=== PATIENT | female | born 1935 | race Caucasian/White ===

== ENCOUNTER 2016-08-26 14:13 | Emergency (ER) | payer OTHER ==
--- NOTE | 2016-08-26 17:45 | ED NURSING NOTES ---
Clinical Report - Nurses [facility] [address] [place] [address] 08/26/2016 14:14 [id number] Triage time 14:24 Aug 26 2016. Acuity: LEVEL 2. Chief Complaint: CHEST PAIN and (past week). RAHUL COMA SCORE: [place] Coma Scale: 15- eyes open spontaneously (4); best verbal response- oriented x 4 (5); best motor response- obeys commands (6). --14:32 James Enciso R.N. 14:23 08/26/16. BP: 96/74. HR: 89. RR: 18. O2 saturation: 95%. Temp: 98.4 F. Pain level now 5/10. --14:32 James Enciso R.N. Weight: 88.9 kg stated. Height/Length: 64 inches Per Patient. BMI: 33.7. --14:32 James Enciso R.N. Medications ClonazePAM Oral. --14:26 James Enicso R.N. Dilt-XR Oral. --14:27 James Enciso R.N. Furosemide Oral. --14:27 James Enciso R.N. Mirtazapine Oral. --14:27 James Enciso R.N. OxyCODONE HCl Oral. --14:27 James Enciso R.N. Potassium Chloride ER Oral. --14:27 James Enciso R.N. Tamsulosin HCl Oral. --14:27 James Enciso R.N. Vit D-Vit E-Safflower Oil External. --14:28 James Enciso R.N. Allergies morphine. --14:28 James Enciso R.N. Bupropion. --14:28 James Enciso R.N. Sulfa Antibiotics. --14:28 James Enciso R.N. History Arrived by private vehicle. Historian: patient. Accompanied by family. Onset. (one week). ( States is having coming and going chest pains. Patient states hasn't slept one wink in a week.). She has had difficulty breathing. No sweating episodes, nausea, vomiting, fever or cough. PAST MEDICAL HX: Hypertension. Immunizations: up-to-date. SOCIAL HX: Never smoker. No alcohol use or drug use. SELF HARM ASSESSMENT: A self harm assessment was performed. The patient answered "yes" to the question "Have you recently felt down, depressed, or hopeless?" and "Do you have thoughts of harming or killing yourself?". (Becasue of her lack of sleep). FALL RISK ASSESSMENT: Fall risk assessment completed. No fall risk identified. NUTRITIONAL RISK ASSESSMENT: The nutritional risk assessment revealed no deficiencies. FUNCTIONAL ASSESSMENT: Functional assessment: no impairments noted. LEARNING NEEDS ASSESSMENT: The learning needs assessment revealed no barriers. ABUSE ASSESSMENT: Abuse assessment: (no because she is alone at night and afraid) The patient was asked "Do you feel safe in your home?". SKIN INTEGRITY ASSESSMENT: Skin integrity risk assessment completed. No skin integrity risk identified. --14:32 James Enciso R.N. PROBLEMS: Chronic pain syndrome. Anxiety Reaction. Edema of lower extremity. Depression. --14:30 James Enciso R.N. Stage 3 kidney disease . --14:33 James Enciso R.N. The following entry was modified by James Enciso R.N., 14:33 <<STRICKEN ENTRY-- Hypertension. --14:25 James Enciso R.N. --END STRIKE>>. ADDITIONAL SURGERIES: Hip Surgery. Knee Surgery. --14:30 James Enciso R.N. Interventions ID band on patient. --14:32 James Enciso R.N. PHYSICAL ASSESSMENT Ambulatory to room. GENERAL / NEURO / PSYCH: Alert. Oriented X 4. Appears anxious. HEENT: Mucous membranes are pink. RESPIRATORY: Respirations not labored. Chest wall tenderness. Breath sounds within normal limits. CVS: Normal sinus rhythm noted. Heart sounds within normal limits. Pulses within normal limits. Capillary refill less than 2 seconds. GI / : Abdomen soft and nontender. ( Last BM yesterday). EXTREMITIES: Bilateral 3+ pitting edema of the lower extremities involving both feet, both ankles and both lower legs. SKIN: Skin is warm and dry. Normal skin turgor. Skin is non-tender. --14:33 James Enciso R.N. NURSING PROGRESS NOTES EKG time: (14:34). EKG was performed by a tech and shown to the ED physician. --14:35 Allison May 14:44 08/26/2016 Site #1 started via IV in the right antecubital space with an 20g angiocath, with aseptic technique and good blood return; one attempt. Blood drawn: rainbow set. Labeled in the presence of the patient and sent to the lab. Saline lock flushed with 10 mL saline. --14:44 James Enciso R.N. 15:03 08/26/2016 Ativan (LORazepam) IVP 1 mg given over 2 minute(s) via site #1. Allergies verified, confirmed 5 rights and sedative warning given to the patient. IV patency established. IV site checked: no pain, redness, or swelling. IV flushed thoroughly pre- and post-medication administration. --15:03 James Enciso R.N. 17:49 08/26/2016 Ativan (LORazepam) IVP 1 mg given over 2 minute(s) via site #1. Allergies verified, confirmed 5 rights and sedative warning given to the patient. IV patency established. IV site checked: no pain, redness, or swelling. IV flushed thoroughly pre- and post-medication administration. --17:49 James Enciso R.N. 17:30 08/26/16. BP: 114/59. HR: 69. RR: 19. O2 saturation: 95%. Temp: 98.6 F. Pain level now: 0/10. 16:30 08/26/16. BP: 114/52. HR: 85. RR: 18. O2 saturation: 94%. 15:30 08/26/16. BP: 127/63. HR: 69. RR: 21. O2 saturation: 96%. 14:45 08/26/16. BP: 103/55. HR: 85. RR: 15. O2 saturation: 94%. --18:05 James Enciso R.N. DISPOSITION / DISCHARGE Condition at departure: improved. No learning barriers present. Discharge instructions provided and reviewed with the patient. Reviewed warnings. Reviewed medication(s). Treatments reviewed. Reviewed referrals. Patient verbalized understanding. Written instructions provided in Georgian. The patient was discharged home and accompanied by wind operations manager. She left the Emergency Department ambulatory and via private vehicle. Air Conditioning Service Technician driving. --18:05 James Enciso R.N. 17:30 08/26/16. BP: 114/59. HR: 69. RR: 19. O2 saturation: 95%. Temp: 98.6 F. Pain level now: 0/10. --18:05 James Enciso R.N. 17:56 08/26/2016 Site #1 removed upon discharge. Catheter intact. Pressure dressing applied. --18:11 James Enciso R.N. Departure time: 18:12 Aug 26 2016. --18:12 James Enciso R.N. Locked/Released at 08/26/2016 19:33 by James Enciso R.N.
--- NOTE | 2016-08-26 17:45 | ED CLINICAL REPORT ---
Clinical Report - Physicians/Mid Levels [facility] [address] [place] [address] 08/26/2016 14:14 Patient: TIANA WESTON Time Seen: 14:18. Arrived- By private vehicle. Historian- patient. HISTORY OF PRESENT ILLNESS Chief Complaint: Insomnia, intermittent CP. It is described as sharp and well localized and it is described as located in the right chest and left chest area. No radiation. At its maximum, severity described as moderate. When seen in the E.D., it was gone. Modifying factors. Not worsened by anything. Not relieved by anything. This started Pt has been having intermittent insomnia since last November, she states. She has had intermittent CP for about a week. Pt is anxious about her sleep, and repeatedly states, "I just can't understand why I can't sleep." Pt believes this is due to someone giving her the "wrong combination of meds" last November; however, pt has not been on the meds for months. She has been weaning from her chronic opioids and benzodiazepines for the past few months, however. and is now gone. Onset during emotional upset. No nausea, vomiting, difficulty breathing or diaphoresis. Similar symptoms previously: Recent medical care: The patient was seen recently at another facility in a clinic. ( Pt has a sleep study coming up in September.). REVIEW OF SYSTEMS No fever, chills, cough, pedal edema or calf pain. No fainting episodes, headache, sore throat, blurred vision or abdominal pain. No black stools, difficulty with urination, skin rash, enlarged lymph nodes or joint pain. No bloody stools. All systems otherwise negative, except as recorded above. PAST HISTORY Problems: Stage 3 kidney disease . Chronic pain syndrome. Anxiety Reaction. Edema of lower extremity. Depression. Hypertension. Additional Surgeries: Hip Surgery. Knee Surgery. Medications: Vit D-Vit E-Safflower Oil External. Tamsulosin HCl Oral. Potassium Chloride ER Oral. OxyCODONE HCl Oral. Mirtazapine Oral. Furosemide Oral. Dilt-XR Oral. ClonazePAM Oral. Allergies: Bupropion. morphine. Sulfa Antibiotics. SOCIAL HISTORY Never smoker. No alcohol use or drug use. ADDITIONAL NOTES The nursing notes have been reviewed. PHYSICAL EXAM Vital Signs: 08/26/2016 14:23 BP: 96/74. HR: 89. RR: 18. O2 saturation: 95%. Temp: 98.4 F. Have been reviewed. Appearance: Alert. Oriented X3. Anxious. Eyes: Pupils equal, round and reactive to light. Eyes normal inspection. ENT: Nose normal. Neck: Normal inspection. CVS: Normal heart rate and rhythm. Heart sounds normal. Pulses normal. Respiratory: No respiratory distress. Breath sounds normal. Chest nontender. Abdomen: Soft and nontender. Back: Normal external inspection. No CVA tenderness. Skin: Skin warm and dry. Normal skin color. No rash. Normal skin turgor. Extremities: Extremities exhibit normal ROM. No lower extremity edema. Neuro: Oriented X 3. No motor deficit. No sensory deficit. LABS, X-RAYS, AND EKG EKG: EKG time: (1434). Normal sinus rhythm. Rate: 85. Left atrial enlargement. Normal LUKE. Normal QRS complex. Normal axis. Normal ST and T waves, QT and QTc. Prior EKG unavailable. The study has been interpreted contemporaneously by me. The study has been independently viewed by me. The EKG appears to be a good tracing. I agree with and confirm the computer reading of the EKG. Rhythm Strip #1: Time: (1431). Rate= 82. Normal sinus rhythm. Regular rhythm. Narrow QRS complexes. No ectopy. Conduction normal. Normal ST segments and T waves. The study was interpreted by me. Laboratory Tests: CBC w Diff: (EBEN: 08/26/2016 14:40) ( MsgRcvd 08/26/2016 14:54) Final results Test Result Flag Units (Reference) WHITE BLOOD COUNT 5.8 K/uL (4.5-11.5) RED BLOOD COUNT 4.63 M/uL (4.00-5.20) HEMOGLOBIN 13.7 gm/dL (12.0-16.0) HEMATOCRIT 41.8 % (36.0-46.0) MEAN CELL VOLUME 90 fL (80-100) MEAN CORPUSCULAR HGB 30 pg (26-34) MEAN CORPUSCULAR HGB CONC 33 g/dL (31-37) RED CELL DISTRIBUTION WIDTH 13.1 % (11.6-14.8) PLATELET COUNT 183 K/uL (150-400) NEUTROPHIL % 50.6 % (50-75) LYMPH % 38.2 % (25-40) MONO % 9.4 % (3-14) EOSINOPHIL % 1.1 % (0-4) BASOPHIL % 0.7 % (0-2) CHEM 13 PANEL: (EBEN: 08/26/2016 14:40) ( MsgRcvd 08/26/2016 15:08) Final results Test Result Flag Units (Reference) GLUCOSE 121 H mg/dL (70-110) BUN 24 H mg/dL (7-18) CREATININE 1.4 H mg/dL (0.6-1.3) Estimated GFR 38.65 mL/min Estimated GFR- 46.85 mL/min Note: Persistent reduction over 3 months in eGFR<60 mL/min/1.73 m2 defines CKD. Patients with eGFR values>=60 mL/min/1.73 m2 may also have CKD if evidence ofpersistent proteinuria. Additional information may be foundat www.kidney.org. SODIUM 144 mmol/L (136-145) POTASSIUM 4.3 mmol/L (3.5-5.1) CHLORIDE 104 mmol/L (98-107) CARBON DIOXIDE 31 mmol/L (21-32) CALCIUM 9.3 mg/dL (8.5-10.1) TOTAL PROTEIN 7.2 g/dL (6.4-8.2) ALBUMIN 3.4 g/dL (3.3-5.0) BILIRUBIN, TOTAL 0.2 mg/dL (0.0-1.0) ALKALINE PHOSPHATASE 111 U/L (46-116) AST (SGOT) 13 L U/L (15-37) ALT (SGPT) 22 U/L (12-78) MAGNESIUM 2.2 mg/dL (1.8-2.4) CPK 28 U/L (24-260) TROPONIN I <0.05 L ng/mL (0.00-1.5) TROPONIN REFERENCE RANGE:<0.1 NEGATIVE0.1-1.5 INDETERMINANT>1.5 POSITIVE . Pulse Oximetry: 08/26/2016 14:23 O2 saturation: 95%. (FIO2 - room air). Interpretation: normal. PROGRESS AND PROCEDURES Course of Care: Pt was very anxious in the ED, and less concerned about the chest pain than about the fact that she can't sleep. Pt expressed that she does not like to live alone. However, she was very resistant to the suggestion that perhaps she could consider moving to the independent section of an assisted living facility. She was also unreceptive to the idea that the weaning from her chronic sedating meds could be a significant contributor to her sleeplessness and anxiety. Pt's work-up was negative. She was given 2 doses of Ativan IV in the ED. I have advised her to f/u with her PCP to discuss further treatment of her insomnia. I will give her a trial of Seroquel, but have stressed the importance of follow-up. I do not feel at this point, that the pt is having a cardiac event. However, I have also advised her that when she sees her PCP, she should discuss this problem, and the possibility of scheduling a stress test. Patient counseled in person regarding the patient's stable condition, test results, diagnosis and need for follow-up. Concerns were addressed. Old medical records reviewed. Disposition: Discharged. Condition: stable. 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 Anxiety reaction (with generalized anxiety disorder). INSTRUCTIONS (Your labs look fine. It is most likely the weaning from your clonazepam and oxycodone that is causing the trouble you are having with sleep.). Warnings: GENERAL WARNINGS: Return or contact your physician immediately if your condition worsens or changes unexpectedly, if not improving as expected, or if other problems arise. Your Current Medications: CONTINUE TAKING THE FOLLOWING MEDICATIONS: ClonazePAM Oral. Dilt-XR Oral. Furosemide Oral. Mirtazapine Oral. OxyCODONE HCl Oral. Potassium Chloride ER Oral. Tamsulosin HCl Oral. Vit D-Vit E-Safflower Oil External. Prescription Medications: Seroquel 25 mg: take 1 tablet orally every 12 hours. Dispense twenty (20). No refill. Substitution is permissible. Follow-up: Follow up with your doctor. Call for the next available appointment. Reason for referral: Follow up ER visit for insomnia and anxiety. Understanding of the discharge instructions verbalized by patient. (Electronically signed by Brea Mcpherson MD 09/04/2016 17:01)
--- NOTE | 2016-08-26 17:46 | ED ORDER SUMMARY ---
..... 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 verbal order read back to Carmen FALK) (Ack 14:21 Adriana) (14:38 LWhalen R.N.) CBC w Diff Urgent (14:08/26/2016 Carlitos R.N. verbal order read back to Carmen FALK) (Ack 14:21 Adriana) (Cancelled: Other14:27 JRomanelli R.N.) CMP Urgent (14:19 08/26/2016 Carlitos R.N. verbal order read back to Carmen FALK) (Ack 14:21 Adriana) (14:27 JRomanelli R.N.) (Cancelled: Other14:27 JRomanelli R.N.) UA-Culture if indicated Urgent (14:19 08/26/2016 JRflori R.N. verbal order read back to Carmen FALK) (Ack 14:21 Adriana) EKG - ER Stat (14:19 08/26/2016 Carlitos R.N. verbal order read back to Carmen FALK) (Ack 14:21 Adriana) (14:35 RKarhuber) (14:38 LWhalen R.N.) Oxygen (2 L/min) (NC) (14:19 08/26/2016 JRomanelli R.N. verbal order read back to Carmen FALK) (Ack 14:21 Adriana) (14:38 LWhalen R.N.) Cardiac Panel Stat (14:08/26/2016 Gonzaloelli R.N. verbal order read back to Carmen FALK) (Ack 14:21 Adriana) (14:38 LWhalen R.N.) MEDICATION ORDERS: IV FLUIDS: IV Saline Lock (14:19 08/26/2016 Carlitos R.N. verbal order read back to Carmen FALK) (14:44 LWhalcarolina R.N.) Ativan IV 1 mg (HIGH ALERT MEDICATION, NOW) (14:55 08/26/2016 Carmen FALK) (15:03 LWclaudia R.N.) Ativan IV 1 mg (HIGH ALERT MEDICATION, NOW) (17:33 08/26/2016 Carmen FALK) (17:49 LWhalcarolnia R.N.) ORDER SHEET NOTES: [Electronically signed by James Enciso R.N. (19:33 08/26/2016)] [Electronically signed by Brea Mcpherson MD (17:01 09/04/2016)] [Electronically locked/signed by James Enciso R.N. (19:33 08/26/2016)]
--- NOTE | 2016-08-26 17:46 | ED ORDER SUMMARY ---
..... 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 verbal order read back to Carmen FALK) (Ack 14:21 Adriana) (14:38 LWhalen R.N.) CBC w Diff Urgent (14:08/26/2016 Carlitos R.N. verbal order read back to Carmen FALK) (Ack 14:21 Adriana) (Cancelled: Other14:27 JRomanelli R.N.) CMP Urgent (14:19 08/26/2016 Carlitos R.N. verbal order read back to Carmen FALK) (Ack 14:21 Adriana) (14:27 JRomanelli R.N.) (Cancelled: Other14:27 JRomanelli R.N.) UA-Culture if indicated Urgent (14:19 08/26/2016 JRflori R.N. verbal order read back to Carmen FALK) (Ack 14:21 Adriana) EKG - ER Stat (14:19 08/26/2016 Carlitos R.N. verbal order read back to Carmen FALK) (Ack 14:21 Adriana) (14:35 RKarhuber) (14:38 LWhalen R.N.) Oxygen (2 L/min) (NC) (14:19 08/26/2016 JRomanelli R.N. verbal order read back to Carmen FALK) (Ack 14:21 Adriana) (14:38 LWhalen R.N.) Cardiac Panel Stat (14:08/26/2016 Gonzaloelli R.N. verbal order read back to Carmen FALK) (Ack 14:21 Adriana) (14:38 LWhalen R.N.) MEDICATION ORDERS: IV FLUIDS: IV Saline Lock (14:19 08/26/2016 Carlitos R.N. verbal order read back to Carmen FALK) (14:44 LWhalcarolina R.N.) Ativan IV 1 mg (HIGH ALERT MEDICATION, NOW) (14:55 08/26/2016 Carmen FALK) (15:03 LWclaudia R.N.) Ativan IV 1 mg (HIGH ALERT MEDICATION, NOW) (17:33 08/26/2016 Carmen FALK) (17:49 LWhalcarolina R.N.) ORDER SHEET NOTES: [Electronically signed by James Enciso R.N. (19:33 08/26/2016)] [Electronically signed by Brea Mcpherson MD (17:01 09/04/2016)] [Electronically locked/signed by James Enciso R.N. (19:33 08/26/2016)]
--- NOTE | 2016-09-04 17:01 | ED MED RECONCILIATION SUMMARY ---
Patient: TIANA WESTON Medication Reconciliation Report [facility] VisitID: [id number] [address] [place] [address] 80y, F Registration Date/Time: 08/26/2016 Weight: 88.9 kg Height/Length: 64 in. BMI: 33.7 ALLERGIES: Bupropion, morphine, Sulfa Antibiotics The patient's Home Medications are listed below: CONTINUE TAKING THE FOLLOWING MEDICATIONS: ClonazePAM Oral Dilt-XR Oral Furosemide Oral Mirtazapine Oral OxyCODONE HCl Oral Potassium Chloride ER Oral Tamsulosin HCl Oral Vit D-Vit E-Safflower Oil External The source(s) of the original Home Medication information: Not obtained. The following Medications were given to the patient in the Emergency Department: Ativan [IVP] IVP 1 mg, administered: 08/26/2016 3:03:00 PM Ativan [IVP] IVP 1 mg, administered: 08/26/2016 5:49:00 PM The following Medications were prescribed to the patient: Seroquel 25 mg: take 1 tablet orally every 12 hours. Dispense twenty (20). No refill. Substitution is permissible. -- Brea Mcpherson MD
--- NOTE | 2016-09-04 17:01 | ED MAR SUMMARY ---
..... Medication Administration Record [facility] [address] [place] [address] Patient: TIANA WESTON Visit ID: [id number] 80y, F Weight: 88.9 kg Height/Length: 64 in BMI: 33.7 ALLERGIES: Sulfa Antibiotics, Bupropion, morphine Given 15:03 08/26/2016 James Enciso R.N. Medication Administered: ATIVAN [IVP] (LORAZEPAM), Dose: 1 mg IVP over 2 minute(s), Site: #1 right AC. Medication Ordered: Ativan IV 1 mg (HIGH ALERT MEDICATION, NOW). Given 17:49 08/26/2016 James Enciso R.N. Medication Administered: ATIVAN [IVP] (LORAZEPAM), Dose: 1 mg IVP over 2 minute(s), Site: #1 right AC. Medication Ordered: Ativan IV 1 mg (HIGH ALERT MEDICATION, NOW).
--- NOTE | 2016-09-04 17:01 | ED MED RECONCILIATION SUMMARY ---
Patient: TIANA WESTON Medication Reconciliation Report [facility] VisitID: [id number] [address] [place] [address] 80y, F Registration Date/Time: 08/26/2016 Weight: 88.9 kg Height/Length: 64 in. BMI: 33.7 ALLERGIES: Bupropion, morphine, Sulfa Antibiotics The patient's Home Medications are listed below: CONTINUE TAKING THE FOLLOWING MEDICATIONS: ClonazePAM Oral Dilt-XR Oral Furosemide Oral Mirtazapine Oral OxyCODONE HCl Oral Potassium Chloride ER Oral Tamsulosin HCl Oral Vit D-Vit E-Safflower Oil External The source(s) of the original Home Medication information: Not obtained. The following Medications were given to the patient in the Emergency Department: Ativan [IVP] IVP 1 mg, administered: 08/26/2016 3:03:00 PM Ativan [IVP] IVP 1 mg, administered: 08/26/2016 5:49:00 PM The following Medications were prescribed to the patient: Seroquel 25 mg: take 1 tablet orally every 12 hours. Dispense twenty (20). No refill. Substitution is permissible. -- Brea Mcpherson MD
--- NOTE | 2016-09-04 17:01 | ED MAR SUMMARY ---
..... Medication Administration Record [facility] [address] [place] [address] Patient: TIANA WESTON Visit ID: [id number] 80y, F Weight: 88.9 kg Height/Length: 64 in BMI: 33.7 ALLERGIES: Sulfa Antibiotics, Bupropion, morphine Given 15:03 08/26/2016 James Enciso R.N. Medication Administered: ATIVAN [IVP] (LORAZEPAM), Dose: 1 mg IVP over 2 minute(s), Site: #1 right AC. Medication Ordered: Ativan IV 1 mg (HIGH ALERT MEDICATION, NOW). Given 17:49 08/26/2016 James Enciso R.N. Medication Administered: ATIVAN [IVP] (LORAZEPAM), Dose: 1 mg IVP over 2 minute(s), Site: #1 right AC. Medication Ordered: Ativan IV 1 mg (HIGH ALERT MEDICATION, NOW).
--- NOTE | 2016-09-04 17:01 | ED DISCHARGE INSTRUCTIONS ---
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 Anxiety reaction (with generalized anxiety disorder). INSTRUCTIONS (Your labs look fine. It is most likely the weaning from your clonazepam and oxycodone that is causing the trouble you are having with sleep.). Warnings: GENERAL WARNINGS: Return or contact your physician immediately if your condition worsens or changes unexpectedly, if not improving as expected, or if other problems arise. Your Current Medications: CONTINUE TAKING THE FOLLOWING MEDICATIONS: ClonazePAM Oral. Dilt-XR Oral. Furosemide Oral. Mirtazapine Oral. OxyCODONE HCl Oral. Potassium Chloride ER Oral. Tamsulosin HCl Oral. Vit D-Vit E-Safflower Oil External. Prescription Medications: Seroquel 25 mg: take 1 tablet orally every 12 hours. Dispense twenty (20). No refill. Substitution is permissible. Follow-up: Follow up with your doctor. Call for the next available appointment. Reason for referral: Follow up ER visit for insomnia and anxiety. Understanding of the discharge instructions verbalized by patient. ADDITIONAL INFORMATION Insomnia Insomnia refers to a difficulty going to sleep or staying asleep, or both. Insomnia has many causes, including anxiety, stress, depression, chronic pain, sleeping cycles out of balance due to working night shifts or excess napping during the day, and a condition called sleep apnea. Insomnia can be a side effect from stimulant medicines such as decongestants, asthma inhalers and pills, diet pills, and illegal drugs such as speed, crank, crack, and PCP. Home Care: Review your medicines with your doctor or pharmacist to find out if they can cause insomnia. Caffeine, smoking and alcohol also affect sleep. Limit your daily use and do not use these before bedtime. Alcohol may make you sleepy at first, but as its effects wear off, you may awaken a few hours later and have trouble returning to sleep. Do not exercise, eat or drink large amounts of liquid within 2 hours of your bedtime. Improve your sleep habits. Have a fixed bed and wake-up time. Try to keep noise, light and heat in your bedroom at a comfortable level. Try using earplugs or eyeshades if needed. Avoid watching TV in bed. If you do not fall asleep within 30 minutes, try to relax by reading or listening to soft music. Limit daytime napping to one 30 minute period, early in the day. Get regular exercise. Find other ways to lessen your stress level. If a medicine was prescribed to help reset your sleep patterns, take it as directed. Sleeping pills are intended for short-term use, only. If taken for too long, the effect wears off while the risk of physical addiction and psychological dependence increases. Follow-Up with your doctor or as directed by our staff if you feel that your insomnia is not responding to the above measures. Get Prompt Medical Attention if any of the following occur: Extreme restlessness or irritability Confusion or hallucinations (seeing or hearing things that are not there) Anxiety, depression Several days without sleeping Stress Reaction Anxiety is the feeling we all get when we think something bad might happen. It is a normal response to stress and usually causes only a mild reaction. When anxiety becomes more severe, emotions may interfere with daily life. In some cases, you may not even be aware of what it is youre anxious about! During an anxiety reaction, you may feel like you are helpless, nervous, depressed or irritable. Your body may show signs of anxiety in many ways. You may experience dry mouth, shakiness, dizziness, weakness, trouble breathing, chest pressure, headache, nausea, diarrhea, tiredness, inability to sleep or sexual problems. Home Care: 1) Try to locate the sources of stress in your life. They may not be obvious! These may include: -- Daily hassles of life which pile up (traffic jams, missed appointments, car troubles, etc.) -- Major life changes, both good (new baby, job promotion) and bad (loss of job, loss of loved one) -- Overload: feeling that you have too many responsibilities and can't take care of all of them at once -- Feeling helpless, feeling that your problems are beyond what youre able to solve 2) Notice how your body reacts to stress. Learn to listen to your body signals. This will help you take action before the stress becomes severe. 3) When you can, do something about the source of your stress. (Avoid hassles, limit the amount of change that happens in your life at one time and take a break when you feel overloaded). 4) Unfortunately, many stressful situations cannot be avoided. It is necessary to learn HOW TO MANAGE STRESS better. There are many proven methods that will reduce your anxiety. These include simple things like exercise, good nutrition and adequate rest. Also, there are certain techniques that are helpful: relaxation and breathing exercises, visualization, biofeedback and meditation. For more information about this, consult your doctor or go to a local bookstore and review the many books and tapes available on this subject. Follow Up If you feel that your anxiety is not responding to self-help measures, contact your doctor or make an appointment with a counselor. Get Prompt Medical Attention if any of the following occur: -- Your symptoms get worse -- Chest pain or trouble breathing -- Severe headache not relieved by rest and mild pain reliever -- Rapid or irregular heartbeat, fainting You have been given the following additional information: Insomnia Anxiety Reaction (Electronically signed by Brea Mcpherson MD 09/04/2016 17:01)
== END 2016-08-26 18:10 | disposition home or self-care (01) ==
LOC: ED SRH 14:13
DX: F11.282 Opioid dependence with opioid-induced sleep disorder (principal); F41.1 Generalized anxiety disorder; R07.9 Chest pain, unspecified; I12.9 Hypertensive chronic kidney disease with stage 1 through stage 4 chronic kidney disease, or unspecified chronic kidney disease; N18.3 Chronic kidney disease, stage 3 (moderate); Z88.5 Allergy status to narcotic agent; Z88.2 Allergy status to sulfonamides; Z79.899 Other long term (current) drug therapy
CPT/HCPCS: 90004; 90100; 90616; 92610; 92720; 95059

== ENCOUNTER 2016-09-05 14:56 | Emergency (ER) | payer OTHER ==
--- NOTE | 2016-09-05 17:06 | ED ORDER SUMMARY ---
..... Patient: TIANA WESTON OrderSheet [facility] VisitID: [id number] [place] [address] 80y, F Registration Date/Time: 09/05/2016 ORDER SHEET Weight: 88.9 kg (stated) Allergies: Bupropion, morphine, Sulfa Antibiotics GENERAL ORDERS: CBC w Diff Urgent (15:18 09/05/2016 EKoroleva P.A.-C) (Ack 15:31 PWeiler ER Tech1) (15:55 PWeiler ER Tech1) UA-Culture if indicated Urgent (15:18 09/05/2016 EKoroleva P.A.-C) (Ack 15:31 PWeiler ER Tech1) (15:37 LNations ER Tech1) Urine Drug Screen Urgent (15:18 09/05/2016 EKoroleva P.A.-C) (Ack 15:31 PWeiler ER Tech1) (15:37 LNations ER Tech1) CMP Urgent (15:18 09/05/2016 EKoroleva P.A.-C) (Ack 15:31 PWeiler ER Tech1) (15:55 PWeiler ER Tech1) Call (Place call to): (Dr) (Dr. CHEN) (15:18 09/05/2016 EKorolejanis P.A.-C) (15:40 PWeiler ER Tech1) MEDICATION ORDERS: Haldol IM 2.5mg (HIGH ALERT MEDICATION, NOW) (16:20 09/05/2016 EKorolejanis P.A.-C) (Ack 16:31 JBoardley R.N.) (17:24 JBoardley R.N.) Ativan IM 1 mg (with RIDE) (16:20 09/05/2016 EKoroleva P.A.-C) (Ack 16:31 JBoardley R.N.) (17:24 JBoardley R.N.) IV FLUIDS: ORDER SHEET NOTES: [Electronically signed by Adolfo Miles R.N. (17:39 09/05/2016)] [Electronically signed by Kathy ShipmanAPreethi-Jeremiah (17:44 09/05/2016)] [Electronically locked/signed by Adolfo Miles R.N. (17:39 09/05/2016)]
--- NOTE | 2016-09-05 17:06 | ED ORDER SUMMARY ---
..... Patient: TIANA WESTON OrderSheet [facility] VisitID: [id number] [place] [address] 80y, F Registration Date/Time: 09/05/2016 ORDER SHEET Weight: 88.9 kg (stated) Allergies: Bupropion, morphine, Sulfa Antibiotics GENERAL ORDERS: CBC w Diff Urgent (15:18 09/05/2016 EKoroleva P.A.-C) (Ack 15:31 PWeiler ER Tech1) (15:55 PWeiler ER Tech1) UA-Culture if indicated Urgent (15:18 09/05/2016 EKoroleva P.A.-C) (Ack 15:31 PWeiler ER Tech1) (15:37 LNations ER Tech1) Urine Drug Screen Urgent (15:18 09/05/2016 EKoroleva P.A.-C) (Ack 15:31 PWeiler ER Tech1) (15:37 LNations ER Tech1) CMP Urgent (15:18 09/05/2016 EKoroleva P.A.-C) (Ack 15:31 PWeiler ER Tech1) (15:55 PWeiler ER Tech1) Call (Place call to): (Dr) (Dr. CHEN) (15:18 09/05/2016 EKorolejanis P.A.-C) (15:40 PWeiler ER Tech1) MEDICATION ORDERS: Haldol IM 2.5mg (HIGH ALERT MEDICATION, NOW) (16:20 09/05/2016 EKorolejanis P.A.-C) (Ack 16:31 JBoardley R.N.) (17:24 JBoardley R.N.) Ativan IM 1 mg (with RIDE) (16:20 09/05/2016 EKoroleva P.A.-C) (Ack 16:31 JBoardley R.N.) (17:24 JBoardley R.N.) IV FLUIDS: ORDER SHEET NOTES: [Electronically signed by Adolfo Miles R.N. (17:39 09/05/2016)] [Electronically signed by Kathy ShipmanAPreethi-Jeremiah (17:44 09/05/2016)] [Electronically locked/signed by Adolfo Miles R.N. (17:39 09/05/2016)]
--- NOTE | 2016-09-05 17:06 | ED CLINICAL REPORT ---
Clinical Report - Physicians/Mid Levels [facility] [address] [place] [address] 09/05/2016 14:57 [id number] Time Seen: 15:03 Sep 05 2016. Arrived- By ambulance. Historian- patient and EMS personnel. HISTORY OF PRESENT ILLNESS Chief Complaint: DIFF with sleep. No situational problems. (patient reports inability to sleep over the last 6-7 days. Has seen her primary care doctor for this, as well as her psychologist in the past. She reports SHE wants to do is sleep. She does not want to harm herself in that sense. Denies any homicidal ideation. Denies any use of drugs.). Has been eating. Has not been sleeping. No unusual behavior, paranoia, delusions, suicidal thoughts or hallucinations. REVIEW OF SYSTEMS No headache, dizziness, weakness, chest pain or abdominal pain. No vomiting, diarrhea, numbness, skin rash or enlarged lymph nodes. All systems otherwise negative, except as recorded above. SOCIAL HISTORY Has social support. Has place to stay. ADDITIONAL NOTES The nursing notes have been reviewed. PHYSICAL EXAM Vital Signs: 09/05/2016 15:05 BP: 133/67. HR: 83. RR: 18. O2 saturation: 98%. Temp: 98.1 F. Pain level now: 4/10. Appearance: Alert. No acute distress. Appearance is normal. Eyes: Pupils equal, round and reactive to light. Neck: Normal inspection. CVS: Normal heart rate and rhythm. Heart sounds normal. Respiratory: Breath sounds normal. Chest nontender. Abdomen: Soft. No abdominal tenderness. Skin: Normal skin color. Psych / Neuro: Mood and affect normal. Thought process and content normal. No apparent hallucinations. Denies suicidal thoughts. Insight and judgement normal. Cranial nerves normal (as tested). No cerebellar findings. No motor deficit. LABS, X-RAYS, AND EKG Laboratory Tests: UA-Culture if indicated: (EBEN: 09/05/2016 15:20) ( MsgRcvd 09/05/2016 16:06) Final results Test Result Flag Units (Reference) URINE COLOR STRAW URINE APPEARANCE CLEAR URINE GLUCOSE NEGATIVE (NEGATIVE) URINE BILIRUBIN NEGATIVE (NEGATIVE) URINE KETONE NEGATIVE (NEGATIVE) URINE SPECIFIC GRAVITY 1.010 (1.010-1.030) URINE PH 7.0 (5.0-8.0) URINE PROTEIN NEGATIVE (NEGATIVE) URINE UROBILINOGEN 0.2 EU/dL (0.2-1.0) URINE NITRITE NEGATIVE (NEGATIVE) URINE BLOOD NEGATIVE (NEGATIVE) URINE LEUK ESTERASE POSITIVE (NEGATIVE) URINE RBC NONE SEEN rbc/hpf (0-1) URINE WBC 0-1 wbc/hpf (0-1) URINE EPITHELIAL CELLS 0-1 EPI/hpf (0-5) URINE BACTERIA TRACE (<1+) (NONE SEEN) URINE COMMENT CULTURE INDICATED This is a corrected result 09/05/16 1605:URINE COMMENT previously reported as: CULT NOT INDICATEDURINE CULTURES ARE SET-UP BASED ON THE FOLLOWING CRITERIA:POSITIVE NITRITEPOSITIVE LEUKOCYTE ESTERASEGREATER THAN 10 WHITE BLOOD CELLSMODERATE (2+) OR GREATER BACTERIA CBC w Diff: (EBEN: 09/05/2016 15:41) ( MsgRcvd 09/05/2016 15:49) Final results Test Result Flag Units (Reference) WHITE BLOOD COUNT 7.1 K/uL (4.5-11.5) RED BLOOD COUNT 4.69 M/uL (4.00-5.20) HEMOGLOBIN 14.0 gm/dL (12.0-16.0) HEMATOCRIT 42.3 % (36.0-46.0) MEAN CELL VOLUME 90 fL (80-100) MEAN CORPUSCULAR HGB 30 pg (26-34) MEAN CORPUSCULAR HGB CONC 33 g/dL (31-37) RED CELL DISTRIBUTION WIDTH 13.4 % (11.6-14.8) PLATELET COUNT 193 K/uL (150-400) NEUTROPHIL % 61.9 % (50-75) LYMPH % 28.6 % (25-40) MONO % 8.5 % (3-14) EOSINOPHIL % 0.4 % (0-4) BASOPHIL % 0.6 % (0-2) Urine Drug Screen: (EBEN: 09/05/2016 15:20) ( MsgRcvd 09/05/2016 15:52) Final results Test Result Flag Units (Reference) AMPHETAMINE/METHAMPHETAMINE NEGATIVE (NEGATIVE) BARBITURATE NEGATIVE (NEGATIVE) BENZODIAZEPINE NEGATIVE (NEGATIVE) CANNABINOID NEGATIVE (NEGATIVE) COCAINE NEGATIVE (NEGATIVE) ECSTASY NEGATIVE (NEGATIVE) METHADONE NEGATIVE (NEGATIVE) OPIATE NEGATIVE (NEGATIVE) The urine drug screen is a qualitative screening test fordrug overdose and abuse. All screen results should beconsidered as presumptive.Drugs screened for are as follows:BenzodiazepinesCocaineAmphetamines/MetamphetaminesTHC (Tetrahydrocannabinol)OpiatesBarbituratesEcstasyMethadonePositive results are unconfirmed. For confirmation, notifythe lab for the specimen to be sent to the reference lab.All confirmations must be performed by a differentmethodology.The ingestion of natural herbal and plant productscontaining Ephedra/Ephedra metabolites can produce in urineone or more substances capable of cross reacting withamphetamine/methamphetamine immunoassays. These testsprovide a preliminary result only. A more specificalternative chemical method must be used to obtain aconfirmed analytical result. CMP: (EBEN: 09/05/2016 15:41) ( MsgRcvd 09/05/2016 16:02) Final results Test Result Flag Units (Reference) GLUCOSE 110 mg/dL (70-110) BUN 21 H mg/dL (7-18) CREATININE 1.1 mg/dL (0.6-1.3) Estimated GFR 51.06 mL/min Estimated GFR- >60 mL/min Note: Persistent reduction over 3 months in eGFR<60 mL/min/1.73 m2 defines CKD. Patients with eGFR values>=60 mL/min/1.73 m2 may also have CKD if evidence ofpersistent proteinuria. Additional information may be foundat www.kidney.org. SODIUM 143 mmol/L (136-145) POTASSIUM 4.1 mmol/L (3.5-5.1) CHLORIDE 108 H mmol/L (98-107) CARBON DIOXIDE 28 mmol/L (21-32) CALCIUM 9.4 mg/dL (8.5-10.1) TOTAL PROTEIN 7.8 g/dL (6.4-8.2) ALBUMIN 3.6 g/dL (3.3-5.0) BILIRUBIN, TOTAL 0.4 mg/dL (0.0-1.0) ALKALINE PHOSPHATASE 112 U/L (46-116) AST (SGOT) 15 U/L (15-37) ALT (SGPT) 22 U/L (12-78) . PROGRESS AND PROCEDURES Course of Care: CT head 06/15/16: NEG, reviewed records from [facility] unremarkable prior work up, prior visit for insomnia. I also discussed with patients pcp, Dr. Contreras, who reports she is having pt seen at sleep specialist, and pt had a few appointments/ cancelled/ rescheduled This has been ongoing for almost a year. At this time patient has a negative neuro exam, no organic cause of acute insomnia, and this has been ongoing for months. PT adamantly denies SI, reports she just wants to sleep, this is not a new issue, rather ongoing for almost 1 year. No neuro or organic. Picked up by family. Patient is stable. Symptoms better. Patient/family counseled. Disposition: Discharged. CLINICAL IMPRESSION Insomnia. INSTRUCTIONS Stay with responsible adult family member (or other responsible adult). Follow-up: Follow up with your doctor. Call for the next available appointment. (Electronically signed by Kathy Shipman P.A.-C 09/05/2016 17:44)
--- NOTE | 2016-09-05 17:06 | ED NURSING NOTES ---
Clinical Report - Nurses [facility] [address] [place] [address] 09/05/2016 14:57 Patient: TIANA WESTON TRIAGE Triage time 14:59. Acuity: LEVEL 4. Chief Complaint: INSOMNIA. 15:00 09/05/16. 15:00 09/05/16. Alert. No acute distress. ( Pt with insomnia causing SI. Pt has not slept for 7 days. Pt states she lives by herself and has a caregiver for 6 hrs a day.). SEPSIS SCREEN: Sepsis Screen. Negative (no infection suspected/documented). ROSEMARY COMA SCORE: Rosemary Coma Scale: 15- eyes open spontaneously (4); best verbal response- oriented x 4 (5); best motor response- obeys commands (6). --15:07 Adolfo Miles R.N. 15:05 09/05/16. BP: 133/67. HR: 83. RR: 18. O2 saturation: 98% on room air. Temp: 98.1 F (oral). Pain level now: 08/29. --15:07 Adolfo Miles R.N. Weight: 88.9 kg stated. Height/Length: 64 inches Per Patient. BMI: 33.7. --15:00 Adolfo Miles R.N. Medications ClonazePAM Oral (Tablet 1 mg) 1/2 tablet, 4x a day. Dilt-XR Oral (Capsule Extended Release 24 Hour 180 mg) 1 capsule, daily. Mirtazapine Oral 45 mg, at bedtime. OxyCODONE HCl Oral 15 mg, 6 times daily. Potassium Chloride ER Oral (Tablet Extended Release 20 meq) 1 tablet, daily. Tamsulosin HCl Oral (Capsule 0.4 mg) 1 capsule, at bedtime. --15:03 Lana Serrato R.N. Allopurinol Oral (Tablet 100 mg) 1 tablet. --16:02 Lana Serrato R.N. Vitamin D Oral, daily. --16:08 Lana Serrato R.N. Methadone HCl Oral (Tablet 5 mg) 1 tablet, daily. --16:09 Lana Serrato R.N. Fish Oil Oral (Capsule 1200 mg) 1 capsule, daily. --16:10 Lana Serrato R.N. TraZODone HCl Oral (Tablet 50 mg) 2 tablets. --16:13 Lana Serrato R.N. HydrOXYzine HCl Oral (Tablet 25 mg) 1-2 tabs, as needed. --16:21 Lana Serrato R.N. SEROquel Oral (Tablet 50 mg) 1-2 tabs, at bedtime. --16:22 Lana Serrato R.N. Melatonin Oral (Tablet 3 mg), q HS. --16:23 Lana Serrato R.N. The following entry was struck by Lana Serrato R.N., 16:21 (09/05/16) Reason - other. <<STRICKEN ENTRY-- Furosemide Oral. --15:03 Adolfo Miles R.N. --END STRIKE>> The following entry was struck by Lana Serrato R.N., 16:21 (09/05/16) Reason - other. <<STRICKEN ENTRY-- Vit D-Vit E-Safflower Oil External. --15:03 Adolfo Miles R.N. --END STRIKE>> The following entry was struck and corrected by Lana Serrato R.N., 16:13 (09/05/16) Reason for correction - other(correction). <<STRICKEN ENTRY-- Tamsulosin HCl Oral. --15:03 Adolfo Miles R.N. --END STRIKE>> The following entry was struck and corrected by Lana Serrato R.N., 16:12 (09/05/16) Reason for correction - other(correction). <<STRICKEN ENTRY-- Potassium Chloride ER Oral. --15:03 Adolfo Miles R.N. --END STRIKE>> The following entry was struck and corrected by Lana Serrato R.N., 16:11 (09/05/16) Reason for correction - other(correction). <<STRICKEN ENTRY-- OxyCODONE HCl Oral. --15:03 Adolfo Miles R.N. --END STRIKE>> The following entry was struck and corrected by Lana Serrato R.N., 16:10 (09/05/16) Reason for correction - other(correction). <<STRICKEN ENTRY-- Mirtazapine Oral. --15:03 Adolfo Miles R.N. --END STRIKE>> The following entry was struck and corrected by Lana Serrato R.N., 16:04 (09/05/16) Reason for correction - other(correction). <<JOSSY ENTRY-- Dilt-XR Oral. --15:03 Adolfo Miles R.N. --END STRIKE>> The following entry was struck and corrected by Lana Serrato R.N., 16:03 (09/05/16) Reason for correction - other(correction). <<JOSSY ENTRY-- ClonazePAM Oral. --15:03 Adolfo Miles R.N. --END STRIKE>>. Medication/allergy information source: the patient. --15:07 Adlofo Miles R.N. Allergies Bupropion. morphine. Sulfa Antibiotics. --15:03 Adolfo Mlies R.N. History Arrived by EMS. Historian: patient. Unaccompanied. Primary physician (NIKI CARLOS). 15:00 09/05/16. Onset. (7 days ago). Treatment ENGINEERING PROJECT MANAGER: None. PAST MEDICAL HX: Immunizations: up-to-date. SOCIAL HX: Never smoker. No alcohol use or drug use. No infectious disease exposure. ABUSE ASSESSMENT: No report of abuse. SELF HARM ASSESSMENT: A self harm assessment was performed. The patient answered "yes" to the question "Have you recently felt down, depressed, or hopeless?", "Have you noticed less interest or pleasure in doing things?" and "Do you have thoughts of harming or killing yourself?" and "no" to the question "Are you here because you tried to hurt yourself?", "Have you ever tried to hurt yourself before today?", "Have you recently had thoughts about harming or killing others?" and "Do you have any dangerous items in your possession?". The patient reports their behavior. A further in-depth assessment is planned. She has been placed under continuous supervision with bedside precautions. Clothes and valuables were removed and placed at the nurses station. FALL RISK ASSESSMENT: Fall risk assessment completed. No fall risk identified. NUTRITIONAL RISK ASSESSMENT: The nutritional risk assessment revealed no deficiencies. FUNCTIONAL ASSESSMENT: Functional assessment: no impairments noted. LEARNING NEEDS ASSESSMENT: The learning needs assessment revealed no barriers. SKIN INTEGRITY ASSESSMENT: Skin integrity risk assessment completed. No skin integrity risk identified. --15:07 Adolfo Miles R.N. PROBLEMS: Insomnia. Stage 3 kidney disease . Chronic pain syndrome. Anxiety Reaction. Edema of lower extremity. Depression. Hypertension. --15:03 Adolfo Miles R.N. ADDITIONAL SURGERIES: Hip Surgery. Knee Surgery. --15:03 Adolfo Miles R.N. Assessment 15:09/05/16. --15:07 Adolfo Miles R.N. Interventions 15:09/05/16. 15:09/05/16. ID and allergy band on patient. To treatment room. --15:07 Adolfo Miles R.N. PHYSICAL ASSESSMENT 15:09/05/16. To room via stretcher. GENERAL / NEURO / PSYCH: Alert. Oriented X 4. Mood/affect abnormal (tearful). RESPIRATORY: Respirations not labored. CVS: Capillary refill less than 2 seconds. SKIN: Skin is warm and dry. --15:02 Adolfo Miles R.N. NURSING PROGRESS NOTES 15:09/05/16. The plan of care for this patient has been created. Patient gowned. Head of bed elevated. Reassurance given. Call light placed in reach. Side rails up x 2. Bed placed in lowest position. Brakes of bed on. Brakes of chair on. --15:02 Adolfo Miles R.N. 15:09/05/16. Patient ready for evaluation- chart flagged and notification provided. --15:02 Adolfo Miles R.N. Patient ID band checked for patient name and birthdate: patient confirmed. Instructions provided to collect clean catch urine and patient verbalized understanding. Clean catch urine collected with return of yellow-colored clear urine; sample sent to lab for urinalysis, culture and drug screen. Specimen labeled in the presence of the patient. --15:38 Maria Victoria Mehta ER Tech1 ( breathalyzer - .000). --15:38 Maria Victoria Mehta ER Tech1 15:57 09/05/16. Blood samples drawn. (by lab). --15:57 Adolfo Miles R.N. 16:38 pt given purse and she took 1 of her Oxycontin fro a bottle in her purse. Purse then placed on the cabinet. --16:39 Lana Serrato R.N. 17:19 09/05/2016 HALDOL (Haloperidol Lactate) IM 2.5 mg given. Given in the right deltoid. Allergies verified, confirmed 5 rights and sedative warning given to the patient. --17:24 Adolfo Miles R.N. 17:19 09/05/2016 Ativan (LORazepam) IM 1 mg given. Given in the left deltoid. Allergies verified, confirmed 5 rights and sedative warning given to the patient. --17:24 Adolfo Miles R.N. 17:31 09/05/16. ( Pt left tearful stating she does not know what to do to get sleep, educated to patient to follow up with PCP in AM. Pt and caregiver will make an appt tomorrow, pt given medications IM to help with insomnia.). --17:31 Adolfo Miles R.N. DISPOSITION / DISCHARGE 17:17 09/05/16. Condition at departure: improved. The goals identified in the patient's plan of care were met. No learning barriers present. Discharge instructions provided and reviewed with the caregiver and patient. Reviewed warnings. Reviewed medication(s). Treatments reviewed. Patient verbalized understanding. Written instructions provided in Cambodian. Verbalized understanding (caregiver). The patient was discharged by the physician product development assistant. She was discharged home. She left the Emergency Department ambulatory. FALL RISK ASSESSMENT: Fall risk assessment completed. No fall risk identified. --17:23 Adolfo Miles R.N. 17:16 09/05/16. BP: 119/72. HR: 82. RR: 14. O2 saturation: 100% on room air. Temp: 97.9 F (oral). --17:23 Adolfo Miles R.N. The patient was discharged by the physician product development assistant. She was discharged home and accompanied by caregiver. She left the Emergency Department in a wheelchair and via private vehicle. Driving (caregiver). --17:24 Adolfo Miles R.N. 17:24 09/05/16. Departure time: 17:24. --17:24 Adolfo Miles R.N. Locked/Released at 09/05/2016 17:39 by Adolfo Miles R.N.
--- NOTE | 2016-09-05 17:44 | ED MAR SUMMARY ---
..... Medication Administration Record [facility] [address] [place] [address] Patient: TIANA WESTON Visit ID: [id number] 80y, F Weight: 88.9 kg Height/Length: 64 in BMI: 33.7 ALLERGIES: Bupropion, morphine, Sulfa Antibiotics Given 17:09/05/2016 Adolfo Miles R.N. Medication Administered: HALDOL [IM] (HALOPERIDOL LACTATE), Dose: 2.5 mg IM. Medication Ordered: Haldol IM 2.5mg (HIGH ALERT MEDICATION, NOW). Given 17:09/05/2016 Adolfo Miles R.N. Medication Administered: ATIVAN [IM] (LORAZEPAM), Dose: 1 mg IM. Medication Ordered: Ativan IM 1 mg (with RIDE).
--- NOTE | 2016-09-05 17:44 | ED MED RECONCILIATION SUMMARY ---
Patient: TIANA WESTON Medication Reconciliation Report [facility] VisitID: [id number] [address] [place] [address] 80y, F Registration Date/Time: 09/05/2016 Weight: 88.9 kg Height/Length: 64 in. BMI: 33.7 ALLERGIES: Bupropion, morphine, Sulfa Antibiotics The patient's Home Medications are listed below: THE FOLLOWING MEDICATIONS NEED TO BE RECONCILED: Allopurinol Oral (100 mg) 1 tablet ClonazePAM Oral (1 mg) 1/2 tablet, 4x a day Dilt-XR Oral (180 mg) 1 capsule, daily Fish Oil Oral (1200 mg) 1 capsule, daily HydrOXYzine HCl Oral (25 mg) 1-2 tabs Melatonin Oral (3 mg), q HS Methadone HCl Oral (5 mg) 1 tablet, daily Mirtazapine Oral 45 mg, at bedtime OxyCODONE HCl Oral 15 mg, 6 times daily Potassium Chloride ER Oral (20 meq) 1 tablet, daily SEROquel Oral (50 mg) 1-2 tabs, at bedtime Tamsulosin HCl Oral (0.4 mg) 1 capsule, at bedtime TraZODone HCl Oral (50 mg) 2 tablets Vitamin D Oral, daily The source(s) of the original Home Medication information: patient The following Medications were given to the patient in the Emergency Department: HALDOL [IM] IM 2.5 mg, administered: 09/05/2016 5:19:00 PM Ativan [IM] IM 1 mg, administered: 09/05/2016 5:19:00 PM The following Medications were prescribed to the patient: None.
--- NOTE | 2016-09-05 17:44 | ED MED RECONCILIATION SUMMARY ---
Patient: TIANA WESTON Medication Reconciliation Report [facility] VisitID: [id number] [address] [place] [address] 80y, F Registration Date/Time: 09/05/2016 Weight: 88.9 kg Height/Length: 64 in. BMI: 33.7 ALLERGIES: Bupropion, morphine, Sulfa Antibiotics The patient's Home Medications are listed below: THE FOLLOWING MEDICATIONS NEED TO BE RECONCILED: Allopurinol Oral (100 mg) 1 tablet ClonazePAM Oral (1 mg) 1/2 tablet, 4x a day Dilt-XR Oral (180 mg) 1 capsule, daily Fish Oil Oral (1200 mg) 1 capsule, daily HydrOXYzine HCl Oral (25 mg) 1-2 tabs Melatonin Oral (3 mg), q HS Methadone HCl Oral (5 mg) 1 tablet, daily Mirtazapine Oral 45 mg, at bedtime OxyCODONE HCl Oral 15 mg, 6 times daily Potassium Chloride ER Oral (20 meq) 1 tablet, daily SEROquel Oral (50 mg) 1-2 tabs, at bedtime Tamsulosin HCl Oral (0.4 mg) 1 capsule, at bedtime TraZODone HCl Oral (50 mg) 2 tablets Vitamin D Oral, daily The source(s) of the original Home Medication information: patient The following Medications were given to the patient in the Emergency Department: HALDOL [IM] IM 2.5 mg, administered: 09/05/2016 5:19:00 PM Ativan [IM] IM 1 mg, administered: 09/05/2016 5:19:00 PM The following Medications were prescribed to the patient: None.
--- NOTE | 2016-09-05 17:44 | ED MAR SUMMARY ---
..... Medication Administration Record [facility] [address] [place] [address] Patient: TIANA WESTON Visit ID: [id number] 80y, F Weight: 88.9 kg Height/Length: 64 in BMI: 33.7 ALLERGIES: Bupropion, morphine, Sulfa Antibiotics Given 17:09/05/2016 Adolfo Miles R.N. Medication Administered: HALDOL [IM] (HALOPERIDOL LACTATE), Dose: 2.5 mg IM. Medication Ordered: Haldol IM 2.5mg (HIGH ALERT MEDICATION, NOW). Given 17:09/05/2016 Adolfo Miles R.N. Medication Administered: ATIVAN [IM] (LORAZEPAM), Dose: 1 mg IM. Medication Ordered: Ativan IM 1 mg (with RIDE).
--- NOTE | 2016-09-05 17:44 | ED DISCHARGE INSTRUCTIONS ---
Patient: TIANA WESTON General Instructions [facility] VisitID: [id number] [place] [address] 80y, F Registration Date/Time: 09/05/2016 Insomnia. INSTRUCTIONS Stay with responsible adult family member (or other responsible adult). Follow-up: Follow up with your doctor. Call for the next available appointment. ADDITIONAL INFORMATION Insomnia Insomnia refers to a difficulty going to sleep or staying asleep, or both. Insomnia has many causes, including anxiety, stress, depression, chronic pain, sleeping cycles out of balance due to working night shifts or excess napping during the day, and a condition called sleep apnea. Insomnia can be a side effect from stimulant medicines such as decongestants, asthma inhalers and pills, diet pills, and illegal drugs such as speed, crank, crack, and PCP. Home Care: Review your medicines with your doctor or pharmacist to find out if they can cause insomnia. Caffeine, smoking and alcohol also affect sleep. Limit your daily use and do not use these before bedtime. Alcohol may make you sleepy at first, but as its effects wear off, you may awaken a few hours later and have trouble returning to sleep. Do not exercise, eat or drink large amounts of liquid within 2 hours of your bedtime. Improve your sleep habits. Have a fixed bed and wake-up time. Try to keep noise, light and heat in your bedroom at a comfortable level. Try using earplugs or eyeshades if needed. Avoid watching TV in bed. If you do not fall asleep within 30 minutes, try to relax by reading or listening to soft music. Limit daytime napping to one 30 minute period, early in the day. Get regular exercise. Find other ways to lessen your stress level. If a medicine was prescribed to help reset your sleep patterns, take it as directed. Sleeping pills are intended for short-term use, only. If taken for too long, the effect wears off while the risk of physical addiction and psychological dependence increases. Follow-Up with your doctor or as directed by our staff if you feel that your insomnia is not responding to the above measures. Get Prompt Medical Attention if any of the following occur: Extreme restlessness or irritability Confusion or hallucinations (seeing or hearing things that are not there) Anxiety, depression Several days without sleeping You have been given the following additional information: Insomnia Stay with responsible adult family member (or other responsible adult). (Electronically signed by Kathy Shipman P.A.-C 09/05/2016 17:44)
== END 2016-09-05 17:24 | disposition home or self-care (01) ==
LOC: ED SRH 14:56
DX: G47.00 Insomnia, unspecified (principal); I12.9 Hypertensive chronic kidney disease with stage 1 through stage 4 chronic kidney disease, or unspecified chronic kidney disease; N18.3 Chronic kidney disease, stage 3 (moderate); Z79.899 Other long term (current) drug therapy; Z88.1 Allergy status to other antibiotic agents; Z88.5 Allergy status to narcotic agent; Z88.8 Allergy status to other drugs, medicaments and biological substances
CPT/HCPCS: 90004; 90100; 90469; 92760; 92761; 92762; 92763; 92764; 92765; 92766; 92767; 95059

== ENCOUNTER 2016-12-07 12:48 | Emergency (ER) | payer OTHER ==
--- NOTE | 2016-12-07 15:25 | DIAGNOSTIC IMAGING REPORT ---
PROCEDURE: XR CHEST 1 VIEW INDICATION: FLUID ON LEGS TECHNIQUE: Portable AP view 02:30 p.m. COMPARISON: Chest 10/13/2010 FINDINGS: Cardiomegaly pulmonary vascular congestion and bilateral pleural effusions. Impression: CHF.
--- NOTE | 2016-12-07 15:53 | ED CLINICAL REPORT ---
Clinical Report - Physicians/Mid Levels [facility] [address] [place] [address] 12/07/2016 12:49 [id number] Time Seen: 14:07; initial patient contact, initial documentation, patient care assumed. Arrived- By ambulance. 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 HISTORY OF PRESENT ILLNESS Chief Complaint: LOWER EXTREMITY SWELLING. This started years and is still present and worsening. (worse 1 weeks ago). Not relieved by anything- worsened by standing, walking and not relieved by anything. Symptoms located in the area of the right thigh, left thigh, right ankle, right knee, right leg, right foot, left knee, left foot and left ankle. The patient has had swelling, but not had redness. No difficulty walking. No bladder dysfunction, bowel dysfunction, sensory loss or motor loss. ( says the swelling worse yesterday). Patient denies an injury. Similar symptoms previously: Chronically, milder. Recent medical care: The patient was seen recently in the office. ( saw here pcp approx x3 weeks ago, nothing done for her leg swelling). REVIEW OF SYSTEMS The patient has had chest pain (says she is having so much swelling that it is causing her chest to hurt). No difficulty breathing, fever or difficulty with urination. All systems otherwise negative, except as recorded above. PAST HISTORY See nurses notes. ( PROBLEMS: Insomnia. Stage 3 kidney disease . Chronic pain syndrome. Anxiety Reaction. Edema of lower extremity. Depression. Hypertension. --13:04 Sheriff Rudolph R.N. SURGERY HX: Appendectomy. Hernia repair. Abdominal hernia repair. Had hysterectomy. Right knee surgery. Tonsillectomy. ( Left toe.). --14:42 Sheriff Rudolph R.N.). SOCIAL HISTORY Never smoker. No alcohol use or drug use. No recent travel. Is a local resident. FAMILY HISTORY Negative. ADDITIONAL NOTES The nursing notes have been reviewed with agreement regarding the chief complaint, HPI, ROS, PMH and patient medications and allergies. PHYSICAL EXAM Vital Signs: 12/07/2016 12:59 BP: 106/60. HR: 78. RR: 17. O2 saturation: 94%. Temp: 98.3 F. Pain level now: 12/29. Have been reviewed as normal and appear to be correct. Appearance: Alert. Oriented X3. No acute distress. Eyes: Pupils equal, round and reactive to light. Eyes normal inspection. Neck: Normal inspection. Neck supple. CVS: Normal heart rate and rhythm. Heart sounds normal. Respiratory: No respiratory distress. Breath sounds normal. Back: Normal inspection. No tenderness. ROM normal. Skin: Skin intact. Skin warm and dry. Normal skin color. Normal skin turgor. Extremities: Lower extremities do not exhibit normal ROM. Lower extremity edema present. Bilateral moderate 3+ pitting edema of the lower extremities involving both feet, both ankles, both lower legs and both thighs. No calf tenderness. Extremities not otherwise negative. Gait: Abnormal gait. No limping gait. She was able to bear weight. Gait not tested due to pain. (pt walks with walker). Neuro, Vascular and Tendons: No pulse deficit present. Lower extremity capillary refill not prolonged. Neuro: Oriented X 3. No motor deficit. No sensory deficit. LABS, X-RAYS, AND EKG EKG: EKG time: (1304). No acute process. No acute ischemia. Normal EKG. Rate: 80. The study has been interpreted contemporaneously by me (and Dr Thomas). The EKG appears to be a good tracing. Interpretation time: ? Chest X-ray: Normal Chest X-Ray. (Impression: CHF. Electronically Final signed by:German Varela MD 12/07/2016 3:26:02 PM). The X-rays were interpreted by the radiologist and contemporaneously by me. Laboratory Tests: CBC w Diff: (EBEN: 12/07/2016 13:18) ( MsgRcvd 12/07/2016 14:36) Final results Test Result Flag Units (Reference) WHITE BLOOD COUNT 6.7 K/uL (4.5-11.5) RED BLOOD COUNT 4.65 M/uL (4.00-5.20) HEMOGLOBIN 14.0 gm/dL (12.0-16.0) HEMATOCRIT 42.2 % (36.0-46.0) MEAN CELL VOLUME 91 fL (80-100) MEAN CORPUSCULAR HGB 30 pg (26-34) MEAN CORPUSCULAR HGB CONC 33 g/dL (31-37) RED CELL DISTRIBUTION WIDTH 13.3 % (11.6-14.8) PLATELET COUNT 190 K/uL (150-400) NEUTROPHIL % 56.5 % (50-75) LYMPH % 33.2 % (25-40) MONO % 8.7 % (3-14) EOSINOPHIL % 1.1 % (0-4) BASOPHIL % 0.5 % (0-2) BNP: (EBEN: 12/07/2016 13:18) ( [facility] 12/07/2016 15:09) Final results Test Result Flag Units (Reference) B-TYPE NATRIURETIC PEPTIDE 63.3 pg/ml (5-100) CMP: (EBEN: 12/07/2016 13:18) ( [facility] 12/07/2016 14:48) Final results Test Result Flag Units (Reference) GLUCOSE 100 mg/dL (70-110) BUN 23 H mg/dL (7-18) CREATININE 1.1 mg/dL (0.6-1.3) Estimated GFR 50.92 mL/min Estimated GFR- >60 mL/min Note: Persistent reduction over 3 months in eGFR<60 mL/min/1.73 m2 defines CKD. Patients with eGFR values>=60 mL/min/1.73 m2 may also have CKD if evidence ofpersistent proteinuria. Additional information may be foundat www.kidney.org. SODIUM 140 mmol/L (136-145) POTASSIUM 3.9 mmol/L (3.5-5.1) CHLORIDE 106 mmol/L (98-107) CARBON DIOXIDE 27 mmol/L (21-32) CALCIUM 9.0 mg/dL (8.5-10.1) TOTAL PROTEIN 7.4 g/dL (6.4-8.2) ALBUMIN 3.4 g/dL (3.3-5.0) BILIRUBIN, TOTAL 0.4 mg/dL (0.0-1.0) ALKALINE PHOSPHATASE 86 U/L (46-116) AST (SGOT) 15 U/L (15-37) ALT (SGPT) 26 U/L (12-78) CPK 25 U/L (24-260) TROPONIN I <0.05 ng/mL (0.00-1.5) TROPONIN REFERENCE RANGE:<0.1 NEGATIVE0.1-1.5 INDETERMINANT>1.5 POSITIVE . PROGRESS AND PROCEDURES Course of Care: 14:09 12/07/16. Old ER records reviewed Labs 08/26/16 BUN 24 H mg/dL (7-18) CREATININE 1.4 H mg/dL (0.6-1.3) Estimated GFR 38.65 mL/min Estimated GFR- 46.85 mL/min pt mean and rude, as soon as I entered room, smiling and introduced myself, pt started cussing at me, c/o how long she waited to see provider, apologized and explained we were getting to everyone as fast as we could, pt continued to cuss, instructed her to stop talking to me with cuss words, and explained we were seeing pts based on medical acuity, and that there were sicker pts than her, and we got to her as fast as we could, and how the nurses started things prior to speed up the process pt still unhappy, unhappy with pcp and care she received in office x3 weeks ago, also unhappy with kidney dr, says her water med isn't working and no one wants to do anything for her, accused one provider of over dosing her, accused another dr of trying to amputate her leg when it didn't need it, pt very unhappy person tech reporting pt had same attitude with the cussing and being mean when she entered room upon pt's arrival and when doing ekg, and she told the tech, that 'she hoped all of rotted in hell and ' 14:32 12/07/16. pt has candy for chronic pain meds, #8 er visits, and 10/29 was seen at [facility] for intentional self harm, see report for full details 1540. discussing results, and expressed concerns that fluid was in lungs and started to affect the heart, tx options discussed, pt apologized for her earlier behavior, stating that she has been telling her dr for a year now she isn't feeling well, and that meds were not helping and she doesn't think the dr is listening, says the combo of mertazipime, seroquel together were causing her really bad insomnia, and she has been awake more this past year than sleeping and her od in October was not intentional, but she took too many seroquel with her pain meds, but she wasn't thinking straight from no sleep, says she would never intentionally od, because two of her daughters from drug od's and her son is currently in rehab for drugs, she is just frustrated because she feels like her dr is not helping her, and the meds make her worse. Patient counseled in person regarding the patient's stable condition, test results and diagnosis. Differential Diagnosis: Other possible considerations: renal insufficiency/failure, chf, dependent edema, substance abuse, electrolyte imbalance. Above considerations are based on history, physical exam, reassessment, laboratory data, X-Ray data and EKG. Differential diagnosis was discussed with patient. Disposition: Discharged home in good and improved condition (15:53). Condition: good and stable. 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 INSTRUCTIONS Follow a low salt diet. Warnings: GENERAL WARNINGS: Return or contact your physician immediately if your condition worsens or changes unexpectedly, if not improving as expected, or if other problems arise. Specifically return if problem worsens. Prescription Medications: Lasix 40 mg: take 1 orally every 24 hours. Dispense twenty (20). No refills. Follow-up: Follow up with your doctor in about two days even if well. Call for an appointment. Summary of care provided to patient. Understanding of the discharge instructions verbalized by patient. Follow-up with: Carlos Moran MD, Internal Medicine, , [facility], [address] [place] [address]; Avtar Barnett MD, Internal Medicine, , [facility], [address] [place] [address]; Sofya Palumbo MD, Internal Medicine, , [address] [facility] [address]; Narayan Us MD, Family [facility], , [facility], [address] [place] [address]; Ari Mendez MD, [facility], , [facility], [address] [place] [address]; Asha Mckee MD, [facility], , [facility], [address] [place] [address] Follow up in about two days as needed. Call for an appointment. (Electronically signed by Paola Davis A.R.N.P. 12/07/2016 20:04)
--- NOTE | 2016-12-07 15:53 | ED CLINICAL REPORT ---
Clinical Report - Physicians/Mid Levels [facility] [address] [place] [address] 12/07/2016 12:49 [id number] Time Seen: 14:07; initial patient contact, initial documentation, patient care assumed. Arrived- By ambulance. Historian- patient and manager field service. HISTORY OF PRESENT ILLNESS Chief Complaint: LOWER EXTREMITY SWELLING. This started years and is still present and worsening. (worse 1 weeks ago). Not relieved by anything- worsened by standing, walking and not relieved by anything. Symptoms located in the area of the right thigh, left thigh, right ankle, right knee, right leg, right foot, left knee, left foot and left ankle. The patient has had swelling, but not had redness. No difficulty walking. No bladder dysfunction, bowel dysfunction, sensory loss or motor loss. ( says the swelling worse yesterday). Patient denies an injury. Similar symptoms previously: Chronically, milder. Recent medical care: The patient was seen recently in the office. ( saw here pcp approx x3 weeks ago, nothing done for her leg swelling). REVIEW OF SYSTEMS The patient has had chest pain (says she is having so much swelling that it is causing her chest to hurt). No difficulty breathing, fever or difficulty with urination. All systems otherwise negative, except as recorded above. PAST HISTORY See nurses notes. ( PROBLEMS: Insomnia. Stage 3 kidney disease . Chronic pain syndrome. Anxiety Reaction. Edema of lower extremity. Depression. Hypertension. --13:04 Sheriff Rudolph R.N. SURGERY HX: Appendectomy. Hernia repair. Abdominal hernia repair. Had hysterectomy. Right knee surgery. Tonsillectomy. ( Left toe.). --14:42 Sheriff Rudolph R.N.). SOCIAL HISTORY Never smoker. No alcohol use or drug use. No recent travel. Is a local resident. FAMILY HISTORY Negative. ADDITIONAL NOTES The nursing notes have been reviewed with agreement regarding the chief complaint, HPI, ROS, PMH and patient medications and allergies. PHYSICAL EXAM Vital Signs: 12/07/2016 12:59 BP: 106/60. HR: 78. RR: 17. O2 saturation: 94%. Temp: 98.3 F. Pain level now: 12/29. Have been reviewed as normal and appear to be correct. Appearance: Alert. Oriented X3. No acute distress. Eyes: Pupils equal, round and reactive to light. Eyes normal inspection. Neck: Normal inspection. Neck supple. CVS: Normal heart rate and rhythm. Heart sounds normal. Respiratory: No respiratory distress. Breath sounds normal. Back: Normal inspection. No tenderness. ROM normal. Skin: Skin intact. Skin warm and dry. Normal skin color. Normal skin turgor. Extremities: Lower extremities do not exhibit normal ROM. Lower extremity edema present. Bilateral moderate 3+ pitting edema of the lower extremities involving both feet, both ankles, both lower legs and both thighs. No calf tenderness. Extremities not otherwise negative. Gait: Abnormal gait. No limping gait. She was able to bear weight. Gait not tested due to pain. (pt walks with walker). Neuro, Vascular and Tendons: No pulse deficit present. Lower extremity capillary refill not prolonged. Neuro: Oriented X 3. No motor deficit. No sensory deficit. LABS, X-RAYS, AND EKG EKG: EKG time: (1304). No acute process. No acute ischemia. Normal EKG. Rate: 80. The study has been interpreted contemporaneously by me (and Dr Thomas). The EKG appears to be a good tracing. Interpretation time: ? Chest X-ray: Normal Chest X-Ray. (Impression: CHF. Electronically Final signed by:German Varela MD 12/07/2016 3:26:02 PM). The X-rays were interpreted by the radiologist and contemporaneously by me. Laboratory Tests: CBC w Diff: (EBEN: 12/07/2016 13:18) ( MsgRcvd 12/07/2016 14:36) Final results Test Result Flag Units (Reference) WHITE BLOOD COUNT 6.7 K/uL (4.5-11.5) RED BLOOD COUNT 4.65 M/uL (4.00-5.20) HEMOGLOBIN 14.0 gm/dL (12.0-16.0) HEMATOCRIT 42.2 % (36.0-46.0) MEAN CELL VOLUME 91 fL (80-100) MEAN CORPUSCULAR HGB 30 pg (26-34) MEAN CORPUSCULAR HGB CONC 33 g/dL (31-37) RED CELL DISTRIBUTION WIDTH 13.3 % (11.6-14.8) PLATELET COUNT 190 K/uL (150-400) NEUTROPHIL % 56.5 % (50-75) LYMPH % 33.2 % (25-40) MONO % 8.7 % (3-14) EOSINOPHIL % 1.1 % (0-4) BASOPHIL % 0.5 % (0-2) BNP: (EBEN: 12/07/2016 13:18) ( [facility] 12/07/2016 15:09) Final results Test Result Flag Units (Reference) B-TYPE NATRIURETIC PEPTIDE 63.3 pg/ml (5-100) CMP: (EBEN: 12/07/2016 13:18) ( [facility] 12/07/2016 14:48) Final results Test Result Flag Units (Reference) GLUCOSE 100 mg/dL (70-110) BUN 23 H mg/dL (7-18) CREATININE 1.1 mg/dL (0.6-1.3) Estimated GFR 50.92 mL/min Estimated GFR- >60 mL/min Note: Persistent reduction over 3 months in eGFR<60 mL/min/1.73 m2 defines CKD. Patients with eGFR values>=60 mL/min/1.73 m2 may also have CKD if evidence ofpersistent proteinuria. Additional information may be foundat www.kidney.org. SODIUM 140 mmol/L (136-145) POTASSIUM 3.9 mmol/L (3.5-5.1) CHLORIDE 106 mmol/L (98-107) CARBON DIOXIDE 27 mmol/L (21-32) CALCIUM 9.0 mg/dL (8.5-10.1) TOTAL PROTEIN 7.4 g/dL (6.4-8.2) ALBUMIN 3.4 g/dL (3.3-5.0) BILIRUBIN, TOTAL 0.4 mg/dL (0.0-1.0) ALKALINE PHOSPHATASE 86 U/L (46-116) AST (SGOT) 15 U/L (15-37) ALT (SGPT) 26 U/L (12-78) CPK 25 U/L (24-260) TROPONIN I <0.05 ng/mL (0.00-1.5) TROPONIN REFERENCE RANGE:<0.1 NEGATIVE0.1-1.5 INDETERMINANT>1.5 POSITIVE . PROGRESS AND PROCEDURES Course of Care: 14:09 12/07/16. Old ER records reviewed Labs 08/26/16 BUN 24 H mg/dL (7-18) CREATININE 1.4 H mg/dL (0.6-1.3) Estimated GFR 38.65 mL/min Estimated GFR- 46.85 mL/min pt mean and rude, as soon as I entered room, smiling and introduced myself, pt started cussing at me, c/o how long she waited to see provider, apologized and explained we were getting to everyone as fast as we could, pt continued to cuss, instructed her to stop talking to me with cuss words, and explained we were seeing pts based on medical acuity, and that there were sicker pts than her, and we got to her as fast as we could, and how the nurses started things prior to speed up the process pt still unhappy, unhappy with pcp and care she received in office x3 weeks ago, also unhappy with kidney dr, says her water med isn't working and no one wants to do anything for her, accused one provider of over dosing her, accused another dr of trying to amputate her leg when it didn't need it, pt very unhappy person tech reporting pt had same attitude with the cussing and being mean when she entered room upon pt's arrival and when doing ekg, and she told the tech, that 'she hoped all of rotted in hell and ' 14:32 12/07/16. pt has candy for chronic pain meds, #8 er visits, and 10/29 was seen at [facility] for intentional self harm, see report for full details 1540. discussing results, and expressed concerns that fluid was in lungs and started to affect the heart, tx options discussed, pt apologized for her earlier behavior, stating that she has been telling her dr for a year now she isn't feeling well, and that meds were not helping and she doesn't think the dr is listening, says the combo of mertazipime, seroquel together were causing her really bad insomnia, and she has been awake more this past year than sleeping and her od in October was not intentional, but she took too many seroquel with her pain meds, but she wasn't thinking straight from no sleep, says she would never intentionally od, because two of her daughters from drug od's and her son is currently in rehab for drugs, she is just frustrated because she feels like her dr is not helping her, and the meds make her worse. Patient counseled in person regarding the patient's stable condition, test results and diagnosis. Differential Diagnosis: Other possible considerations: renal insufficiency/failure, chf, dependent edema, substance abuse, electrolyte imbalance. Above considerations are based on history, physical exam, reassessment, laboratory data, X-Ray data and EKG. Differential diagnosis was discussed with patient. Disposition: Discharged home in good and improved condition (15:53). Condition: good and stable. 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 INSTRUCTIONS Follow a low salt diet. Warnings: GENERAL WARNINGS: Return or contact your physician immediately if your condition worsens or changes unexpectedly, if not improving as expected, or if other problems arise. Specifically return if problem worsens. Prescription Medications: Lasix 40 mg: take 1 orally every 24 hours. Dispense twenty (20). No refills. Follow-up: Follow up with your doctor in about two days even if well. Call for an appointment. Summary of care provided to patient. Understanding of the discharge instructions verbalized by patient. Follow-up with: Carlos Moran MD, Internal Medicine, , [facility], [address] [place] [address]; Avtar Barnett MD, Internal Medicine, , [facility], [address] [place] [address]; Sofya Palumbo MD, Internal Medicine, , [address] [facility] [facility] [address]; Narayan Us MD, Family [facility], , [facility], [address] [place] [address]; Ari Mendez MD, [facility], , [facility], [address] [place] [address]; Asha Mckee MD, [facility], , [facility], [address] [place] [address] Follow up in about two days as needed. Call for an appointment. (Electronically signed by Paola Davis A.R.N.P. 12/07/2016 20:04)
--- NOTE | 2016-12-07 15:53 | ED NURSING NOTES ---
Clinical Report - Nurses [facility] [address] [place] [address] 12/07/2016 12:49 [id number] TRI[facility] Triage time 13:00. Chief Complaint: RIGHT LOWER EXTREMITY SWELLING. LEFT LOWER EXTREMITY SWELLING. --13:09 Sheriff Rudolph R.N. 12:59 12/07/16. BP: 106/60. HR: 78. RR: 17. O2 saturation: 94%. Temp: 98.3 F. Pain level now: 12/29. --13:09 Sheriff Rudolph R.N. Weight: 92.5 kg stated. Height/Length: 64 inches Per Patient. BMI: 35. --13:00 Sheriff Rudolph R.N. Medications Allopurinol Oral (Tablet 100 mg) 1 tablet. Dilt-XR Oral (Capsule Extended Release 24 Hour 180 mg) 1 capsule, daily. Fish Oil Oral (Capsule 1200 mg) 1 capsule, daily. HydrOXYzine HCl Oral (Tablet 25 mg) 1-2 tabs, as needed. Melatonin Oral (Tablet 3 mg), q HS. Methadone HCl Oral (Tablet 5 mg) 1 tablet, daily. OxyCODONE HCl Oral 15 mg, 6 times daily. Potassium Chloride ER Oral (Tablet Extended Release 20 meq) 1 tablet, daily. SEROquel Oral (Tablet 50 mg) 1-2 tabs, at bedtime. Tamsulosin HCl Oral (Capsule 0.4 mg) 1 capsule, at bedtime. TraZODone HCl Oral (Tablet 50 mg) 2 tablets. Vitamin D Oral, daily. --13:04 Sheriff Rudolph R.N. The following entry was struck by Sheriff Rudolph R.N., 13:05 (12/07/16) Reason - other(Discontinued). <<STRICKEN ENTRY-- Mirtazapine Oral 45 mg, at bedtime. --13:04 Sheriff Rudolph R.N. --END STRIKE>>. Allergies Bupropion. morphine. Sulfa Antibiotics. --13:04 Sheriff Rudolph R.N. History Arrived by private vehicle. Historian: patient. Accompanied by family. Primary physician (DR Riana Munroe). No injury occurred. This occurred (1 week ago). ( Bilateral lower legs swelling getting worse since last week.). SURGERY HX: Appendectomy. Hernia repair. Had hysterectomy. Right knee surgery. Tonsillectomy. SOCIAL HX: Never smoker. No alcohol use or drug use. FALL RISK ASSESSMENT: Fall risk assessment completed. No fall risk identified. NUTRITIONAL RISK ASSESSMENT: The nutritional risk assessment revealed no deficiencies. FUNCTIONAL ASSESSMENT: Functional assessment: no impairments noted. LEARNING NEEDS ASSESSMENT: The learning needs assessment revealed no barriers. SKIN INTEGRITY ASSESSMENT: Skin integrity risk assessment completed. No skin integrity risk identified. --13:09 Sheriff Rudolph R.N. SURGERY HX: Appendectomy. Hernia repair. Abdominal hernia repair. Had hysterectomy. Right knee surgery. Tonsillectomy. ( Left toe.). --14:42 Sheriff Rudolph R.N. PROBLEMS: Insomnia. Stage 3 kidney disease . Chronic pain syndrome. Anxiety Reaction. Edema of lower extremity. Depression. Hypertension. --13:04 Sheriff Rudolph R.N. PHYSICAL ASSESSMENT Ambulatory to room. Patient gowned. GENERAL / NEURO / PSYCH: Oriented X 4. Alert. Appears in no acute distress. EXTREMITIES: Non-pitting edema of the right lower extremity involving the foot, ankle, lower leg and thigh; left lower extremity involving the foot, ankle, lower leg and thigh. Right leg: swelling. Left leg: swelling. SKIN: Skin intact. Skin is warm and dry. --13:12 Sheriff Rudolph R.N. NURSING PROGRESS NOTES Two patient identifiers checked. Call light placed in reach. Side rails up x 2. Bed placed in lowest position. Brakes of bed on. --13:12 Sheriff Rudolph R.N. EKG time: (1304). EKG was ordered, performed by a tech and shown to the ED physician. --13:15 Maria Victoria Mehta, ER Tech1 14:27. Portable chest x-ray performed. --14:27 Idania Staples ER Tech1 14:10 12/07/2016 Site #1 started via IV in the right antecubital space with an 20g angiocath, with aseptic technique and good blood return; one attempt. Saline lock flushed with 10 mL saline. --14:35 Sheriff Rudolph R.N. 14:41 12/07/2016 Lasix IVP 40 mg given over 1 minute(s) via site #1. Allergies verified and confirmed 5 rights. IV patency established. IV site checked: no pain, redness, or swelling. IV flushed thoroughly pre- and post-medication administration. IVP given by RN. --14:41 Sheriff Rudolph R.N. <<STRICKEN ENTRY-- 15:38 12/07/16. BP: 100/46. HR: 96. RR: 22. O2 saturation: 100%. Temp: 37.3 C. Additional comments: BENJAMIN TEMP CATH. --15:40 Ofelia Summers R.N. --END STRIKE>> Charted on wrong patient. --15:41 Ofelia Summers R.N. DISPOSITION / DISCHARGE No learning barriers present. Discharge instructions provided and reviewed with the patient. Patient verbalized understanding. Written instructions provided in [place]. The patient was discharged by the nurse practitioner. She was discharged home and accompanied by family. She left the Emergency Department ambulatory and via private vehicle. Family member driving. --16:13 Sheriff Rudolph R.N. 16:12 12/07/16. BP: 106/72. HR: 91. RR: 18. O2 saturation: 97%. Temp: 97.9 F. --16:13 Sheriff Rudolph R.N. Locked/Released at 12/07/2016 16:14 by Sheriff Rudolph R.N.
--- NOTE | 2016-12-07 15:53 | ED ORDER SUMMARY ---
..... Patient: TIANA WESTON OrderSheet [facility] VisitID: [id number] [place] [address] 81y, F Registration Date/Time: 12/07/2016 ORDER SHEET Weight: 92.5 kg (stated) Allergies: Bupropion, morphine, Sulfa Antibiotics GENERAL ORDERS: Chest 1V Urgent (14:12/07/2016 HBivens A.R.N.P.) (Ack 14:24 AMcQuoid ER Tech1) (15:20 AMcQuoid ER Tech1) Business Support Assistant (Continuous) (14:12/07/2016 HBivens A.R.N.P.) (Ack 14:24 AMcQuoid ER Tech1) CBC w Diff Urgent (14:12/07/2016 HBivens A.R.N.P.) (Ack 14:24 AMcQuoid ER Tech1) (15:20 AMcQuoid ER Tech1) CMP Urgent (14:12/07/2016 HBivens A.R.N.P.) (Ack 14:24 AMcQuoid ER Tech1) (15:20 AMcQuoid ER Tech1) BNP Urgent (14:21 12/07/2016 HBivens A.R.N.P.) (Ack 14:24 AMcQuoid ER Tech1) (15:20 AMcQuoid ER Tech1) CPK Urgent (14:12/07/2016 HBivens A.R.N.P.) (Ack 14:24 AMcQuoid ER Tech1) (15:20 AMcQuoid ER Tech1) Troponin-I Urgent (14:12/07/2016 HBivens A.R.N.P.) (Ack 14:24 AMcQuoid ER Tech1) (15:20 AMcQuoid ER Tech1) EKG - ER Stat (14:12/07/2016 HBivens A.R.N.P.) (Ack 14:24 AMcQuoid ER Tech1) (14:26 AMcQuoid ER Tech1) MEDICATION ORDERS: IV FLUIDS: IV Saline Lock (14:12/07/2016 HBivens A.R.N.P.) (14:35 SSambou R.N.) Lasix IV 40 mg (NOW) (14:31 12/07/2016 Preston A.R.N.P.) (14:41 Matilda R.N.) ORDER SHEET NOTES: [Electronically signed by Sheriff Suri Rudolph (16:14 12/07/2016)] [Electronically signed by Paola DavisNPreethiPPreethi (20:04 12/07/2016)] [Electronically locked/signed by Sheriff Suri Rudolph (16:14 12/07/2016)]
--- NOTE | 2016-12-07 15:53 | ED ORDER SUMMARY ---
..... Patient: TIANA WESTON OrderSheet [facility] VisitID: [id number] [place] [address] 81y, F Registration Date/Time: 12/07/2016 ORDER SHEET Weight: 92.5 kg (stated) Allergies: Bupropion, morphine, Sulfa Antibiotics GENERAL ORDERS: Chest 1V Urgent (14:12/07/2016 HBivens A.R.N.P.) (Ack 14:24 AMcQuoid ER Tech1) (15:20 AMcQuoid ER Tech1) Senior [employer]form[employer] Developer (Continuous) (14:12/07/2016 HBivens A.R.N.P.) (Ack 14:24 AMcQuoid ER Tech1) CBC w Diff Urgent (14:12/07/2016 HBivens A.R.N.P.) (Ack 14:24 AMcQuoid ER Tech1) (15:20 AMcQuoid ER Tech1) CMP Urgent (14:12/07/2016 HBivens A.R.N.P.) (Ack 14:24 AMcQuoid ER Tech1) (15:20 AMcQuoid ER Tech1) BNP Urgent (14:21 12/07/2016 HBivens A.R.N.P.) (Ack 14:24 AMcQuoid ER Tech1) (15:20 AMcQuoid ER Tech1) CPK Urgent (14:12/07/2016 HBivens A.R.N.P.) (Ack 14:24 AMcQuoid ER Tech1) (15:20 AMcQuoid ER Tech1) Troponin-I Urgent (14:12/07/2016 HBivens A.R.N.P.) (Ack 14:24 AMcQuoid ER Tech1) (15:20 AMcQuoid ER Tech1) EKG - ER Stat (14:12/07/2016 HBivens A.R.N.P.) (Ack 14:24 AMcQuoid ER Tech1) (14:26 AMcQuoid ER Tech1) MEDICATION ORDERS: IV FLUIDS: IV Saline Lock (14:12/07/2016 HBivens A.R.N.P.) (14:35 SSambou R.N.) Lasix IV 40 mg (NOW) (14:31 12/07/2016 Preston A.R.N.P.) (14:41 Matilda R.N.) ORDER SHEET NOTES: [Electronically signed by Sheriff Suri Rudolph (16:14 12/07/2016)] [Electronically signed by Paola DavisNPreethiPPreethi (20:04 12/07/2016)] [Electronically locked/signed by Sheriff Suri Rudolph (16:14 12/07/2016)]
--- NOTE | 2016-12-07 20:04 | ED DISCHARGE INSTRUCTIONS ---
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 INSTRUCTIONS Follow a low salt diet. Warnings: GENERAL WARNINGS: Return or contact your physician immediately if your condition worsens or changes unexpectedly, if not improving as expected, or if other problems arise. Specifically return if problem worsens. Prescription Medications: Lasix 40 mg: take 1 orally every 24 hours. Dispense twenty (20). No refills. Follow-up: Follow up with your doctor in about two days even if well. Call for an appointment. Summary of care provided to patient. Understanding of the discharge instructions verbalized by patient. Follow-up with: Carlos Moran MD, Internal Medicine, , [facility], [address] [place] [address]; Avtar Barnett MD, Internal Medicine, [place] [id number]; Sofya Palumbo MD, Internal Medicine, [place] [address]; Narayan Us MD, Family [facility], , [place] [address]; Ari Mendez MD, [facility], , [facility], [address] [place] [address]; Asha Mckee MD, [facility], , [facility], [address] [place] [address] Follow up in about two days as needed. Call for an appointment. ADDITIONAL INFORMATION Peripheral Vascular Disease Peripheral vascular disease (PVD) is a condition where blood flow to the extremities is reduced or blocked. This is most often due to a buildup of fat (cholesterol and triglycerides) in the gutierrez of the arteries (arteriosclerosis). This most often affects one or both legs. When one or more arteries is narrowed or blocked, the muscles cannot get enough blood and oxygen.That is whysymptoms increase with muscular effort. About half of patients with PVD do not have symptoms. Those with symptoms usually complain of leg pain (one or both calves, thighs, hips) during exertion which gets better with rest. This is calledintermittent claudication. In more severe cases, the pain can occur even at rest (for example, at night when you are in bed). Other symptoms may include numbness, tingling or weakness in the legs, burning or aching in the feet or toes. Risk factors for developing PVD include: Age over 50 Diabetes Cigarette smoking Hypertension Obesity High lipids (fats) in the blood Inactive lifestyle People with PVD are at benfaj-izha-rllmin risk for a heart attack and stroke. Home Care: If you smoke, quit smoking. This will lessen your symptoms and lower your chance that the disease will get worse. Join a stop-smoking program or talk to your doctor for assistance. Unless your doctor tells you otherwise, engage in a physical activity (such as a brisk walk) for at least 30 minutes a day. Follow a low-fat diet and avoid foods high in cholesterol. If you are overweight, talk to your doctor about weight-loss strategies. Control high blood pressure. If you have diabetes, make every effort to control your blood sugar. Ask your doctor to monitor your HbA1C level, which is a measure of how well your blood sugar is controlled. It should be below 7.0. High blood sugar over a long period of time will damage the blood vessels in the eyes, heart, brain, kidneys, and legs. Trim your toenails regularly and watch for cuts, scrapes, or open sores on your feet. PVD increases risk of infection from these types of problems. Follow Up with your doctor or as advised by our staff. Get Prompt Medical Attention if any of the following occur: Pain in the chest, arm, upper back, neck, jaw, or shoulder Shortness of breath Dizziness or fainting Sudden severe headache (worst headache of your life) Difficulty with speech or vision, weakness of an arm or leg Confusion, difficulty walking, loss of balance Sudden severe pain in the leg or foot Sudden cold, pale or blue color to the leg or foot Heart Failure (Left Or Right Sided) The heart is a large muscle that pumps blood throughout the body. Blood carries oxygen to all the organs, muscles, and skin of your body. After the body takes the oxygen out of the blood, the blood returns to the heart. The right side of the heart collects that blood and pumps it to the lungs to receive fresh oxygen. This oxygen-rich blood from the lungs then returns to the left side of the heart where it is pumped back out to the rest of the body, starting the process all over. Heart Failure (HF) occurs when the heart muscle is weakened. This affects the pumping action of the heart. When the right side of the heart is weakened, it cant handle the blood it is receiving from the rest of the body. This blood returns to the heart through veins. When too much pressure builds up in the veins fluid leaks out into the tissues. [place] then causes that fluid to spread to those parts of the body that are the lowest. Therefore, one of the first symptoms of HF include swelling in the feet and ankles. If the condition worsens, the swelling can even go up past the knees. When the left side of the heart is weakened, it cant handle the blood it is receiving from the lungs. Pressure then builds up in the veins of the lungs, causing fluid to leakinto the lung tissues. This may be referred to as congestive heart failure.This causes you to feel short of breath, weak, or dizzy. These symptoms are often worse with exertion, such as climbing stairs or walking up hills. Lying flat is uncomfortable and can make your breathing worse. This may make sleeping difficult and force you to useextra pillows to sleep well. This condition may not only affect the right side of the heart or only the left side. While it may have started on one side, it often affects both sides. Causes of heart failure Coronary artery disease Prior heart attack (also known as acute myocardial infarction, or AMI) High blood pressure Damaged heart valve Diabetes Obesity Cigarette smoking Alcohol abuse Treatment Heart failure is a chronic condition. There is no cure. The purpose of medical treatment is to improve the pumping action of the heart, and remove excess water from the body. A number of medications can help achieve this goal,improvesymptoms and prevent the heart from becoming weaker. Another major goal is to better treat the caues of heart failure, such as diabetes, high blood pressure, and your lifestyle. Home care Check your weight every day. A sudden increase in weight gain could mean worsening heart failure. Use the same scale every day Weigh yourself at the same time every day Make sure the scale is on the floor, not on a rug Keep a record of your weight every day, so your doctor can see it. If you are not given a log sheet for this, keep a separate journal for this purpose. Reduce your salt (sodium) intake. Avoid high-salt foods (olives, pickles, smoked meats, salted potato chips, etc.). Do not add salt to your food at the table and use only small amounts of salt when cooking. Follow your doctors recommendations about how much fluid intake is safe. Stop smoking. Reduce alcohol use. Lose weight if you are overweight. The excess weight adds a lot of stress on the workload of the heart. Stay active. Talk to your doctor about an exercise program that is safe for your heart. Keep your feet elevated to reduce swelling. Ask your doctor about support hose as a preventive treatment for daytime leg swelling. Besides taking your medicine as instructed, an important part of treatment includes lifestyle changes such as diet, physical activity, stopping smoking, and weight control. Improve your diet. Often in the hospital, people are given a "heart healthy diet." This includes more fresh foods, lower fat, less processed foots, and lower salt. Follow-up care Follow up with your doctor as directed by our staff. Make sure to keep any appointments that were made for you as this can help better control heart failure. If an X-ray was done, you will be notified of any new findings that may affect your care. Call 911 Call 911 if you: Become severely short of breath Feel lightheaded, or feel like you might pass out or faint Have chest pain or discomfort that is different than usual, the medicines your doctor told you to use for this do not help, or the pain lasts longer than 10 to 15 minutes Suddendly develop a rapid heart rate When to seek medical care Get prompt medical attention if you have any of the following signs of worsening heart failure: Sudden weight gain (3or more pounds in one day or5or more pounds in one week) Trouble breathing not related to being active New or increased swelling of your legs or ankles Swelling or pain in your abdomen Breathing trouble at night (waking up short of breath, needing more pillows to breathe) Frequent coughing that doesnt go away Feeling much more tired than usual Furosemide Oral tablet What is this medicine? FUROSEMIDE ([address] [place] [address]) is a diuretic. It helps you make more urine and to lose salt and excess water from your body. This medicine is used to treat high blood pressure, and edema or swelling from heart, kidney, or liver disease. How should I use this medicine? Take this medicine by mouth with a glass of water. Follow the directions on the prescription label. You may take this medicine with or without food. If it upsets your stomach, take it with food or milk. Do not take your medicine more often than directed. Remember that you will need to pass more urine after taking this medicine. Do not take your medicine at a time of day that will cause you problems. Do not take at bedtime. Talk to your manager search engine regarding the use of this medicine in children. While this drug may be prescribed for selected conditions, precautions do apply. What side effects may I notice from receiving this medicine? Side effects that you should report to your doctor or health certified social workers in health care as soon as possible: blood in urine or stools dry mouth fever or chills hearing loss or ringing in the ears irregular heartbeat muscle pain or weakness, cramps skin rash stomach upset, pain, or nausea tingling or numbness in the hands or feet unusually weak or tired vomiting or diarrhea yellowing of the eyes or skin Side effects that usually do not require medical attention (report to your doctor or health certified social workers in health care if they continue or are bothersome): headache loss of appetite unusual bleeding or bruising What may interact with this medicine? aspirin and aspirin-like medicines certain antibiotics chloral hydrate cisplatin cyclosporine digoxin diuretics laxatives lithium medicines for blood pressure medicines that relax muscles for surgery methotrexate NSAIDs, medicines for pain and inflammation like ibuprofen, naproxen, or indomethacin phenytoin steroid medicines like prednisone or cortisone sucralfate What if I miss a dose? If you miss a dose, take it as soon as you can. If it is almost time for your next dose, take only that dose. Do not take double or extra doses. Where should I keep my medicine? Keep out of the reach of children. Store at room temperature between 15 and 30 degrees C (59 and 86 degrees F). Protect from light. Throw away any unused medicine after the expiration date. What should I tell my health care provider before I take this medicine? They need to know if you have any of these conditions: abnormal blood electrolytes diarrhea or vomiting gout heart disease kidney disease, small amounts of urine, or difficulty passing urine liver disease an unusual or allergic reaction to furosemide, sulfa drugs, other medicines, foods, dyes, or preservatives or trying to get breast-feeding What should I watch for while using this medicine? Visit your doctor or health certified social workers in health care for regular checks on your progress. Check your blood pressure regularly. Ask your doctor or health certified social workers in health care what your blood pressure should be, and when you should contact him or her. If you are a diabetic, check your blood sugar as directed. You may need to be on a special diet while taking this medicine. Check with your doctor. Also, ask how many glasses of fluid you need to drink a day. You must not get dehydrated. You may get drowsy or dizzy. Do not drive, use machinery, or do anything that needs mental alertness until you know how this drug affects you. Do not stand or sit up quickly, especially if you are an older patient. This reduces the risk of dizzy or fainting spells. Alcohol can make you more drowsy and dizzy. Avoid alcoholic drinks. This medicine can make you more sensitive to the sun. Keep out of the sun. If you cannot avoid being in the sun, wear protective clothing and use sunscreen. Do not use sun lamps or tanning beds/booths. You have been given the following additional information: Peripheral Vascular Disease Heart Failure, General Furosemide Oral tablet (Electronically signed by Paola Davis A.R.N.P. 12/07/2016 20:04)
--- NOTE | 2016-12-07 20:04 | ED MED RECONCILIATION SUMMARY ---
Patient: TIANA WESTON Medication Reconciliation Report [facility] VisitID: [id number] [place] [address] 81y, F Registration Date/Time: 12/07/2016 Weight: 92.5 kg Height/Length: 64 in. BMI: 35.0 ALLERGIES: Bupropion, morphine, Sulfa Antibiotics The patient's Home Medications are listed below: THE FOLLOWING MEDICATIONS NEED TO BE RECONCILED: Allopurinol Oral (100 mg) 1 tablet Dilt-XR Oral (180 mg) 1 capsule, daily Fish Oil Oral (1200 mg) 1 capsule, daily HydrOXYzine HCl Oral (25 mg) 1-2 tabs Melatonin Oral (3 mg), q HS Methadone HCl Oral (5 mg) 1 tablet, daily OxyCODONE HCl Oral 15 mg, 6 times daily Potassium Chloride ER Oral (20 meq) 1 tablet, daily SEROquel Oral (50 mg) 1-2 tabs, at bedtime Tamsulosin HCl Oral (0.4 mg) 1 capsule, at bedtime TraZODone HCl Oral (50 mg) 2 tablets Vitamin D Oral, daily The source(s) of the original Home Medication information: Not obtained. The following Medications were given to the patient in the Emergency Department: Lasix [IVP] IVP 40 mg, administered: 12/07/2016 2:41:00 PM The following Medications were prescribed to the patient: Lasix 40 mg: take 1 orally every 24 hours. Dispense twenty (20). No refills. -- Paola Davis A.R.NPreethiP.
--- NOTE | 2016-12-07 20:04 | ED DISCHARGE INSTRUCTIONS ---
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 INSTRUCTIONS Follow a low salt diet. Warnings: GENERAL WARNINGS: Return or contact your physician immediately if your condition worsens or changes unexpectedly, if not improving as expected, or if other problems arise. Specifically return if problem worsens. Prescription Medications: Lasix 40 mg: take 1 orally every 24 hours. Dispense twenty (20). No refills. Follow-up: Follow up with your doctor in about two days even if well. Call for an appointment. Summary of care provided to patient. Understanding of the discharge instructions verbalized by patient. Follow-up with: Carlos Moran MD, Internal Medicine, , [facility], [address] [place] [address]; Avtar Barnett MD, Internal Medicine, [place] [address]; Sofya Palumbo MD, Internal Medicine, [place] [address]; Narayan Us MD, [facility], , [place] [address]; Ari Mendez MD, [facility], , [facility], [address] [place] [address]; Asha Mckee MD, [facility], , [facility], [address] [place] [address] Follow up in about two days as needed. Call for an appointment. ADDITIONAL INFORMATION Peripheral Vascular Disease Peripheral vascular disease (PVD) is a condition where blood flow to the extremities is reduced or blocked. This is most often due to a buildup of fat (cholesterol and triglycerides) in the gutierrez of the arteries (arteriosclerosis). This most often affects one or both legs. When one or more arteries is narrowed or blocked, the muscles cannot get enough blood and oxygen.That is whysymptoms increase with muscular effort. About half of patients with PVD do not have symptoms. Those with symptoms usually complain of leg pain (one or both calves, thighs, hips) during exertion which gets better with rest. This is calledintermittent claudication. In more severe cases, the pain can occur even at rest (for example, at night when you are in bed). Other symptoms may include numbness, tingling or weakness in the legs, burning or aching in the feet or toes. Risk factors for developing PVD include: Age over 50 Diabetes Cigarette smoking Hypertension Obesity High lipids (fats) in the blood Inactive lifestyle People with PVD are at [id number] risk for a heart attack and stroke. Home Care: If you smoke, quit smoking. This will lessen your symptoms and lower your chance that the disease will get worse. Join a stop-smoking program or talk to your doctor for assistance. Unless your doctor tells you otherwise, engage in a physical activity (such as a brisk walk) for at least 30 minutes a day. Follow a low-fat diet and avoid foods high in cholesterol. If you are overweight, talk to your doctor about weight-loss strategies. Control high blood pressure. If you have diabetes, make every effort to control your blood sugar. Ask your doctor to monitor your HbA1C level, which is a measure of how well your blood sugar is controlled. It should be below 7.0. High blood sugar over a long period of time will damage the blood vessels in the eyes, heart, brain, kidneys, and legs. Trim your toenails regularly and watch for cuts, scrapes, or open sores on your feet. PVD increases risk of infection from these types of problems. Follow Up with your doctor or as advised by our staff. Get Prompt Medical Attention if any of the following occur: Pain in the chest, arm, upper back, neck, jaw, or shoulder Shortness of breath Dizziness or fainting Sudden severe headache (worst headache of your life) Difficulty with speech or vision, weakness of an arm or leg Confusion, difficulty walking, loss of balance Sudden severe pain in the leg or foot Sudden cold, pale or blue color to the leg or foot Heart Failure (Left Or Right Sided) The heart is a large muscle that pumps blood throughout the body. Blood carries oxygen to all the organs, muscles, and skin of your body. After the body takes the oxygen out of the blood, the blood returns to the heart. The right side of the heart collects that blood and pumps it to the lungs to receive fresh oxygen. This oxygen-rich blood from the lungs then returns to the left side of the heart where it is pumped back out to the rest of the body, starting the process all over. Heart Failure (HF) occurs when the heart muscle is weakened. This affects the pumping action of the heart. When the right side of the heart is weakened, it cant handle the blood it is receiving from the rest of the body. This blood returns to the heart through veins. When too much pressure builds up in the veins fluid leaks out into the tissues. [place] then causes that fluid to spread to those parts of the body that are the lowest. Therefore, one of the first symptoms of HF include swelling in the feet and ankles. If the condition worsens, the swelling can even go up past the knees. When the left side of the heart is weakened, it cant handle the blood it is receiving from the lungs. Pressure then builds up in the veins of the lungs, causing fluid to leakinto the lung tissues. This may be referred to as congestive heart failure.This causes you to feel short of breath, weak, or dizzy. These symptoms are often worse with exertion, such as climbing stairs or walking up hills. Lying flat is uncomfortable and can make your breathing worse. This may make sleeping difficult and force you to useextra pillows to sleep well. This condition may not only affect the right side of the heart or only the left side. While it may have started on one side, it often affects both sides. Causes of heart failure Coronary artery disease Prior heart attack (also known as acute myocardial infarction, or AMI) High blood pressure Damaged heart valve Diabetes Obesity Cigarette smoking Alcohol abuse Treatment Heart failure is a chronic condition. There is no cure. The purpose of medical treatment is to improve the pumping action of the heart, and remove excess water from the body. A number of medications can help achieve this goal,improvesymptoms and prevent the heart from becoming weaker. Another major goal is to better treat the caues of heart failure, such as diabetes, high blood pressure, and your lifestyle. Home care Check your weight every day. A sudden increase in weight gain could mean worsening heart failure. Use the same scale every day Weigh yourself at the same time every day Make sure the scale is on the floor, not on a rug Keep a record of your weight every day, so your doctor can see it. If you are not given a log sheet for this, keep a separate journal for this purpose. Reduce your salt (sodium) intake. Avoid high-salt foods (olives, pickles, smoked meats, salted potato chips, etc.). Do not add salt to your food at the table and use only small amounts of salt when cooking. Follow your doctors recommendations about how much fluid intake is safe. Stop smoking. Reduce alcohol use. Lose weight if you are overweight. The excess weight adds a lot of stress on the workload of the heart. Stay active. Talk to your doctor about an exercise program that is safe for your heart. Keep your feet elevated to reduce swelling. Ask your doctor about support hose as a preventive treatment for daytime leg swelling. Besides taking your medicine as instructed, an important part of treatment includes lifestyle changes such as diet, physical activity, stopping smoking, and weight control. Improve your diet. Often in the hospital, people are given a "heart healthy diet." This includes more fresh foods, lower fat, less processed foots, and lower salt. Follow-up care Follow up with your doctor as directed by our staff. Make sure to keep any appointments that were made for you as this can help better control heart failure. If an X-ray was done, you will be notified of any new findings that may affect your care. Call 911 Call 911 if you: Become severely short of breath Feel lightheaded, or feel like you might pass out or faint Have chest pain or discomfort that is different than usual, the medicines your doctor told you to use for this do not help, or the pain lasts longer than 10 to 15 minutes Suddendly develop a rapid heart rate When to seek medical care Get prompt medical attention if you have any of the following signs of worsening heart failure: Sudden weight gain (3or more pounds in one day or5or more pounds in one week) Trouble breathing not related to being active New or increased swelling of your legs or ankles Swelling or pain in your abdomen Breathing trouble at night (waking up short of breath, needing more pillows to breathe) Frequent coughing that doesnt go away Feeling much more tired than usual Furosemide Oral tablet What is this medicine? FUROSEMIDE ([address] [place] [address]) is a diuretic. It helps you make more urine and to lose salt and excess water from your body. This medicine is used to treat high blood pressure, and edema or swelling from heart, kidney, or liver disease. How should I use this medicine? Take this medicine by mouth with a glass of water. Follow the directions on the prescription label. You may take this medicine with or without food. If it upsets your stomach, take it with food or milk. Do not take your medicine more often than directed. Remember that you will need to pass more urine after taking this medicine. Do not take your medicine at a time of day that will cause you problems. Do not take at bedtime. Talk to your construction project administrator regarding the use of this medicine in children. While this drug may be prescribed for selected conditions, precautions do apply. What side effects may I notice from receiving this medicine? Side effects that you should report to your doctor or health career development facilitator as soon as possible: blood in urine or stools dry mouth fever or chills hearing loss or ringing in the ears irregular heartbeat muscle pain or weakness, cramps skin rash stomach upset, pain, or nausea tingling or numbness in the hands or feet unusually weak or tired vomiting or diarrhea yellowing of the eyes or skin Side effects that usually do not require medical attention (report to your doctor or health career development facilitator if they continue or are bothersome): headache loss of appetite unusual bleeding or bruising What may interact with this medicine? aspirin and aspirin-like medicines certain antibiotics chloral hydrate cisplatin cyclosporine digoxin diuretics laxatives lithium medicines for blood pressure medicines that relax muscles for surgery methotrexate NSAIDs, medicines for pain and inflammation like ibuprofen, naproxen, or indomethacin phenytoin steroid medicines like prednisone or cortisone sucralfate What if I miss a dose? If you miss a dose, take it as soon as you can. If it is almost time for your next dose, take only that dose. Do not take double or extra doses. Where should I keep my medicine? Keep out of the reach of children. Store at room temperature between 15 and 30 degrees C (59 and 86 degrees F). Protect from light. Throw away any unused medicine after the expiration date. What should I tell my health care provider before I take this medicine? They need to know if you have any of these conditions: abnormal blood electrolytes diarrhea or vomiting gout heart disease kidney disease, small amounts of urine, or difficulty passing urine liver disease an unusual or allergic reaction to furosemide, sulfa drugs, other medicines, foods, dyes, or preservatives or trying to get breast-feeding What should I watch for while using this medicine? Visit your doctor or health career development facilitator for regular checks on your progress. Check your blood pressure regularly. Ask your doctor or health career development facilitator what your blood pressure should be, and when you should contact him or her. If you are a diabetic, check your blood sugar as directed. You may need to be on a special diet while taking this medicine. Check with your doctor. Also, ask how many glasses of fluid you need to drink a day. You must not get dehydrated. You may get drowsy or dizzy. Do not drive, use machinery, or do anything that needs mental alertness until you know how this drug affects you. Do not stand or sit up quickly, especially if you are an older patient. This reduces the risk of dizzy or fainting spells. Alcohol can make you more drowsy and dizzy. Avoid alcoholic drinks. This medicine can make you more sensitive to the sun. Keep out of the sun. If you cannot avoid being in the sun, wear protective clothing and use sunscreen. Do not use sun lamps or tanning beds/booths. You have been given the following additional information: Peripheral Vascular Disease Heart Failure, General Furosemide Oral tablet (Electronically signed by Paola Davis A.R.N.P. 12/07/2016 20:04)
--- NOTE | 2016-12-07 20:04 | ED MED RECONCILIATION SUMMARY ---
Patient: TIANA WESTON Medication Reconciliation Report [facility] VisitID: [id number] [place] [address] 81y, F Registration Date/Time: 12/07/2016 Weight: 92.5 kg Height/Length: 64 in. BMI: 35.0 ALLERGIES: Bupropion, morphine, Sulfa Antibiotics The patient's Home Medications are listed below: THE FOLLOWING MEDICATIONS NEED TO BE RECONCILED: Allopurinol Oral (100 mg) 1 tablet Dilt-XR Oral (180 mg) 1 capsule, daily Fish Oil Oral (1200 mg) 1 capsule, daily HydrOXYzine HCl Oral (25 mg) 1-2 tabs Melatonin Oral (3 mg), q HS Methadone HCl Oral (5 mg) 1 tablet, daily OxyCODONE HCl Oral 15 mg, 6 times daily Potassium Chloride ER Oral (20 meq) 1 tablet, daily SEROquel Oral (50 mg) 1-2 tabs, at bedtime Tamsulosin HCl Oral (0.4 mg) 1 capsule, at bedtime TraZODone HCl Oral (50 mg) 2 tablets Vitamin D Oral, daily The source(s) of the original Home Medication information: Not obtained. The following Medications were given to the patient in the Emergency Department: Lasix [IVP] IVP 40 mg, administered: 12/07/2016 2:41:00 PM The following Medications were prescribed to the patient: Lasix 40 mg: take 1 orally every 24 hours. Dispense twenty (20). No refills. -- Paola Davis A.R.NPreethiP.
--- NOTE | 2016-12-07 20:04 | ED MAR SUMMARY ---
..... Medication Administration Record [facility] [address] [place] [address] Patient: TIANA WESTON Visit ID: [id number] 81y, F Weight: 92.5 kg Height/Length: 64 in BMI: 35 ALLERGIES: Bupropion, morphine, Sulfa Antibiotics Given 14:41 12/07/2016 Sheriff Rudolph R.N. Medication Administered: LASIX [IVP], Dose: 40 mg IVP over 1 minute(s), Site: #1 right AC. Medication Ordered: Lasix IV 40 mg (NOW).
--- NOTE | 2016-12-07 20:04 | ED MAR SUMMARY ---
..... Medication Administration Record [facility] [address] [place] [address] Patient: TIANA WESTON Visit ID: [id number] 81y, F Weight: 92.5 kg Height/Length: 64 in BMI: 35 ALLERGIES: Bupropion, morphine, Sulfa Antibiotics Given 14:41 12/07/2016 Sheriff Rudolph R.N. Medication Administered: LASIX [IVP], Dose: 40 mg IVP over 1 minute(s), Site: #1 right AC. Medication Ordered: Lasix IV 40 mg (NOW).
[2016-12-10] MEDS ORDERED: ALLOPURINOL100 MG PO (08:21)
[2016-12-10] MEDS ORDERED: CARDIZEM CD PO (08:21)
[2016-12-10] MEDS ORDERED: OXYCONTIN CR15 MG PO (08:22)
[2016-12-10] MEDS ORDERED: FISH OIL (08:22)
[2016-12-10] MEDS ORDERED: K-TABS10 MEQ PO (08:23)
[2016-12-10] MEDS ORDERED: SEROQUEL25 MG PO (08:24)
[2016-12-10] MEDS ORDERED: VITAMIN D-31000 UNIT PO (08:24)
[2016-12-10] MEDS ORDERED: TAMSULOSIN HCL0.4 MG PO (08:24)
[2016-12-12] MEDS ORDERED: LEVOFLOXACIN500 MG PO (11:51)
[2016-12-12] MEDS ORDERED: OXYCODONE IR PO (15:35)
[2016-12-12] MEDS ORDERED: OXYCODONE HCL E15 MG PO (15:35)
== END 2016-12-07 16:12 | disposition home or self-care (01) ==
LOC: ED SRH 12:48
DX: I50.1 Left ventricular failure, unspecified (principal); I87.2 Venous insufficiency (chronic) (peripheral); I12.9 Hypertensive chronic kidney disease with stage 1 through stage 4 chronic kidney disease, or unspecified chronic kidney disease; N18.3 Chronic kidney disease, stage 3 (moderate); R60.0 Localized edema; Z79.899 Other long term (current) drug therapy; Z88.5 Allergy status to narcotic agent; Z88.2 Allergy status to sulfonamides; Z88.8 Allergy status to other drugs, medicaments and biological substances
CPT/HCPCS: 90100; 90616; 91320; 92610; 95059